=== PATIENT | female | born 1975 | race Caucasian/White ===

== ENCOUNTER 2016-08-16 12:18 | Emergency (ER) | payer MEDICAID ==
--- NOTE | 2016-08-16 14:59 | UC ---
Young Sweet SooYoung, scribed for Anais Good MD on 08/16/16 at 1408 . Skin Complaint HPI - HPI Summary HPI Summary: A 41 y/o F presents to [facility] [place] with c/o sore on inside of lower lip. The sore was first noticed yesterday. Seems to be uncomfortable. No recent illness perse, but is taking amxicillin x 3 days 2/2 a skin problem. No fever / chills. Po intake ok. Pt is disabled, non-verbal and lives in a correction. - History of Current Complaint Chief Complaint: UCSkin Time Seen by Provider: 08/16/16 14:06 Stated Complaint: SOFT TISSUE COMPLAINT Hx Obtained From: Patient, Family/Gm/Svp [employer] Hx Last Menstrual Period: on depo Onset/Duration: Lasting Days - first noticed yesterday, Still Present Timing: Constant Onset Severity: Mild Current Severity: Mild Pain Intensity: 0 Pain Scale Used: 0-10 Numeric - Allergy/Home Medications Allergies/Adverse Reactions: Allergies Allergy/AdvReac Type Severity Reaction Status Date / Time Carbamazepine [From Tegretol] Allergy Unknown Verified 10/12/15 15:03 Reaction Details Phenobarbital Allergy Unknown Verified 10/12/15 15:03 Reaction Details Phenytoin Allergy Unknown Verified 10/12/15 15:03 Reaction Details Primidone Allergy Unknown Verified 10/12/15 15:03 Reaction Details strawberries Allergy Unknown Unknown Uncoded 01/17/13 15:59 Reaction Details Mysolene Allergy Unknown Uncoded 08/16/16 14:10 Reaction Details Review of Systems Constitutional: Other - note - ROS is limited to greenskeeper, as pt is minimally communicative Skin: Other - POS: white sore on inside of lower lip All Other Systems Reviewed And Are Negative: Yes - Comments Additional Review of Systems Comments: Pt non-verbal, cannot complete full ROS. PMH/Surg Hx/FS Hx/Imm Hx Previously Healthy: No Endocrine History Of: Reports: Thyroid Disease - HYPOTHYROID, Hypothyroidism Denies: Diabetes, Hyperthyroidism, Dyslipidemia Cardiovascular History Of: Denies: Cardiac Disorders, Hypertension, Pacemaker/ICD, Myocardial Infarction , Congestive Heart Failure, Atrial Fibrillation, Deep Vein Thrombosis, Bleeding Disorders Respiratory History Of: Denies: COPD, Asthma, Bronchitis, Pneumonia, Pulmonary Embolism GI/ History Of: Denies: Gastroesophageal Reflux, Ulcer, Gastrointestinal Bleed, Gall Bladder Disease, Kidney Stones, Diverticulitis, Renal Disease, Urosepsis Neurological History Of: Reports: Seizures Denies: TIA, CVA, Dementia, Migraine Psychological History Of: Denies: Anxiety, Depression, Bipolar Disorder, Schizophrenia, Post Traumatic Stress Disorder Cancer History Of: Denies: Lung Cancer, Colorectal Cancer, Breast Cancer, Prostate Cancer, Cervical Cancer Other History Of: Negative For: HIV, Hepatitis B, Hepatitis C - Surgical History Surgical History: None - Family History Known Family History: Positive: None - Patient is a non-verbal correction patient. Her MR (-) for fm hx. - Social History Occupation: Disabled Lives: Assisted Living Alcohol Use: None Substance Use Type: None Smoking Status (MU): Never Smoked Tobacco Physical Exam Triage Information Reviewed: Yes Appearance: Well-Nourished Vital Signs: Initial Vital Signs Temp 97.7 F 08/16/16 13:56 Pulse 83 08/16/16 13:56 Resp 18 08/16/16 13:56 Pulse Ox 99 08/16/16 13:56 Vital Signs Reviewed: Yes Eye Exam: Normal ENT Exam: Other - R lower lip with approx 1cm red area with central white area. C/w apthous ulcer. No praveen fluctuance appreciated, nor drainage. Dentition fair, c/w chronic medical issues. Tongue and remainder of oropharynx as visualizable are ok. Exam limited 2/2 compliance. Neck exam: Normal Neck: Positive: Supple Respiratory Exam: Normal Respiratory: Positive: Chest non-tender, Lungs clear, Normal breath sounds, No respiratory distress, No accessory muscle use Cardiovascular Exam: Normal - generally good skin color Cardiovascular: Positive: RRR, Brisk Capillary Refill Abdominal Exam: Normal Abdomen Description: Positive: Nontender Musculoskeletal Exam: Normal Neurological Exam: Other - per caretakers, condition is baseline. No new focal neurological problems noted or reported. Psychological Exam: Normal - see above. baseline per caretakers. Skin: Positive: Other - POS: Inside lower lip Course/Dx - Course Course Of Treatment: No new problems in CCC. Pleasant. PCP swab (herpes s v. 1 ) sent. Ulcer is c/w with viral etiology. Possible superbacterial involvement , penicillin base abx is the treatment, which she already has started x approx 3 days. See avs re f/u. Reviewed need to change out all mouth objects ( toothpaste, toothbrush, cups, etc) in about 2 days. Questions as posed answered to the best of my ability. - Diagnoses Provider Diagnoses: Viral lip ulcer Discharge - Discharge Plan Condition: Stable Disposition: HOME Prescriptions: ValACYclovir (*) [Valtrex 1 GM(*)] 2 gm PO BID #4 tab Patient Education Materials: Oral Herpes Simplex Virus Infections (ED) Referrals: Dimas Gomez MD [Primary Care Provider] - Additional Instructions: Please follow up with your primary care provider as currently scheduled this week. The sore on your lip looks like a viral sore (very common). A herpes virus swab has been sent to the lab. Follow up with your dentist if possible in the next couple weeks. Change out all of your toothbrushes, plasticware, toothpaste in 2 days. Please seek medical attention for worse or new problems. The documentation as recorded by the Young lazo SooYoung accurately reflects the service I personally performed and the decisions made by me, Anais Good MD.
== END 2016-08-16 14:52 | disposition home or self-care (01) ==
LOC: UCEAST 12:18
DX: K13.79 Other lesions of oral mucosa (principal); E03.9 Hypothyroidism, unspecified; R56.9 Unspecified convulsions
CPT/HCPCS: 87529; 99212; G0463

== ENCOUNTER → 2016-12-28 09:22 | Emergency (ER) | payer MEDICAID ==
[2016-12-28 09:28] VITALS: BP 102/77
--- NOTE | 2016-12-28 10:48 | ED ---
Throat Pain/Nasal Congestion - HPI Summary HPI Summary: 41 female presents to ED with staff with complaints of having a loose tooth of central incisor bottom right that occurred and was noticed yesterday. Patient has MR and is non communicative. Information obtained by caregivers at assisted. Staff is concerned for patient's tooth becoming loose and swallowing/ choking on it. Patient is on a puree diet and she has difficulty swallowing. Does have a dentist. Patient sucks on thumb and bite her thumb the other day which is why the believe the tooth is now loose. No complaints of thumb injury. No concern for infection, denies fever/chills. - History of Current Complaint Chief Complaint: EDDentalPain Time Seen by Provider: 12/28/16 09:29 Hx Obtained From: Family/National Sales Representative - assisted steam blocker/ caregivers Onset/Duration: Sudden Onset, Still Present Severity: Mild Cough: None - Allergies/Home Medications Allergies/Adverse Reactions: Allergies Allergy/AdvReac Type Severity Reaction Status Date / Time Carbamazepine [From Tegretol] Allergy Unknown Verified 10/12/15 15:03 Reaction Details Phenobarbital Allergy Unknown Verified 10/12/15 15:03 Reaction Details Phenytoin Allergy Unknown Verified 10/12/15 15:03 Reaction Details Primidone Allergy Unknown Verified 10/12/15 15:03 Reaction Details strawberries Allergy Unknown Unknown Uncoded 01/17/13 15:59 Reaction Details Mysolene Allergy Unknown Uncoded 08/16/16 14:10 Reaction Details PMH/Surg Hx/FS Hx/Imm Hx Endocrine/Hematology History: Reports: Hx Thyroid Disease - HYPOTHYROID Denies: Hx Diabetes Cardiovascular History: Denies: Hx Congestive Heart Failure, Hx Deep Vein Thrombosis, Hx Hypertension , Hx Myocardial Infarction, Hx Pacemaker/ICD Respiratory History: Denies: Hx Asthma, Hx Chronic Obstructive Pulmonary Disease (COPD), Hx Lung Cancer, Hx Pneumonia, Hx Pulmonary Embolism GI History: Denies: Hx Gall Bladder Disease, Hx Gastrointestinal Bleed, Hx Ulcer, Hx Urosepsis History: Denies: Hx Kidney Stones, Hx Renal Disease Musculoskeletal History: Denies: Hx Osteoporosis Neurological History: Reports: Hx Seizures Denies: Hx Dementia, Hx Migraine, Hx Transient Ischemic Attacks (TIA) Psychiatric History: Denies: Hx Anxiety, Hx Depression, Hx Schizophrenia, Hx Bipolar Disorder - Surgical History Surgery Procedure, Year, and Place: n/a - Immunization History Immunizations Up to Date: Yes Infectious Disease History: No Infectious Disease History: Denies: Hx Human Immunodeficiency Virus (HIV), Traveled Outside the [place] in Last 30 Days Comment Only: History Other Infectious Disease - unknown - Family History Known Family History: Positive: None - Patient is a non-verbal assisted patient. Her MR (-) for fm hx. - Social History Alcohol Use: None Substance Use Type: Reports: None Smoking Status (MU): Never Smoked Tobacco Review of Systems Constitutional: Negative Positive: Dental Pain - loose tooth Cardiovascular: Negative Respiratory: Negative Musculoskeletal: Negative Skin: Negative All Other Systems Reviewed And Are Negative: Yes Physical Exam Triage Information Reviewed: Yes Vital Signs On Initial Exam: Initial Vitals Temp Pulse Resp BP Pulse Ox 97.4 F 78 16 102/77 100 12/28/16 09:26 12/28/16 09:26 12/28/16 09:26 12/28/16 09:26 12/28/16 09:26 Vital Signs Reviewed: Yes Appearance: Positive: Well-Appearing, No Pain Distress, Well-Nourished Skin: Positive: Warm, Skin Color Reflects Adequate Perfusion, Dry. Negative: Cold, Soft, Cyanosis @, Pale, Erythema @ Head/Face: Positive: Normal Head/Face Inspection Eyes: Positive: Conjunctiva Clear ENT: Positive: Hearing grossly normal, Pharynx normal, Dental tenderness - feront central incisior, very loose, attempted to cause it to fall out with brushing. Dental: Positive: Gross Decay/Caries @, Dental Fracture @, Bleeding - at loose tooth, central incisor. Negative: Cervical Lymphadenopathy Neck: Positive: Supple, Nontender, No Lymphadenopathy Respiratory/Lung Sounds: Positive: Clear to Auscultation, Breath Sounds Present. Negative: Rales, Rhonchi, Wheezes Cardiovascular: Positive: Normal, RRR, Pulses are Symmetrical in both Upper and Lower Extremities. Negative: Murmur, Rub Musculoskeletal: Positive: Normal, Strength/ROM Intact Neurological: Positive: Sensory/Motor Intact Diagnostics - Vital Signs Vital Signs Temp Pulse Resp BP Pulse Ox 12/28/16 09:50 97.4 F 78 16 102/77 99 12/28/16 09:26 97.4 F 78 16 102/77 100 - Laboratory Lab Statement: Any lab studies that have been ordered have been reviewed, and results considered in the medical decision making process. EENT Course/Dx - Course Course Of Treatment: spoke with Dr Scales about case as well. attempted to cause tooth to fall out with brushing while in ED however was unsuccessful. Difficult to examine due to patient being uncooperative. Reassured staff there is no harm if tooth is swallowed however may fall out on its own throughout day and things to look out for. Follow up with dentist tomorrow. Aware of worsening signs and symptoms. No concern for complications at this time. Appeared to be overkill to sedate and potentially removed loose tooth. - Differential Diagnoses Differential Diagnoses: Dental Caries, Fractured Tooth, Other - loose tooth, dental pain, dental infection - Diagnoses Provider Diagnoses: Loosening of tooth Discharge - Discharge Plan Condition: Stable Disposition: HOME Referrals: Dimas Gomez MD [Primary Care Provider] - Additional Instructions: Please make an appointment to follow up with dentist. Keep good oral hygiene. If tooth hemorrhages, does not stop bleeding or patient develops fever, please seek medical attention.
== END | disposition home or self-care (01) ==
LOC: ED 09:22
DX: K08.89 Other specified disorders of teeth and supporting structures (principal)
CPT/HCPCS: 99282

== ENCOUNTER 2017-01-04 10:16 | Emergency (ER) | payer MEDICAID ==
[2017-01-04 10:40] VITALS: BP 122/80
--- NOTE | 2017-01-04 10:50 | UC ---
Knee Pain HPI - HPI Summary HPI Summary: 41 yo female hurt her right knee on 12/27 during a sz she has walked with a limp since then - History of Current Complaint Chief Complaint: UCLowerExtremity Stated Complaint: LEG INJURY Time Seen by Provider: 01/04/17 10:32 Hx Obtained From: Patient Hx Last Menstrual Period: on depo Onset/Duration: Sudden Onset, Lasting Days Severity Initially: Moderate Severity Currently: Moderate Pain Intensity: 4 Pain Scale Used: Adult Non Verbal Character: Unable to Describe Aggravating Factor(s): Weight Bearing Alleviating Factor(s): Rest Associated Signs And Symptoms: Positive: Swelling Able to Bear Weight: Yes - Allergies/Home Medications Allergies/Adverse Reactions: Allergies Allergy/AdvReac Type Severity Reaction Status Date / Time Carbamazepine [From Tegretol] Allergy Unknown Verified 01/04/17 10:33 Reaction Details Phenobarbital Allergy Unknown Verified 01/04/17 10:33 Reaction Details Phenytoin Allergy Unknown Verified 01/04/17 10:33 Reaction Details Primidone Allergy Unknown Verified 01/04/17 10:33 Reaction Details strawberries Allergy Unknown Unknown Uncoded 01/04/17 10:33 Reaction Details Mysolene Allergy Unknown Uncoded 01/04/17 10:33 Reaction Details Home Medications: Home Medications Citalopram Hydrobromide [Celexa] 20 mg PO DAILY 01/04/17 [History Confirmed 03/12] PMH/Surg Hx/FS Hx/Imm Hx Previously Healthy: Yes Neurological History: Seizures, Other Other Neurological History: MR Other History Of: Negative For: HIV, Hepatitis B, Hepatitis C - Surgical History Surgical History: None Surgery Procedure, Year, and Place: n/a - Family History Known Family History: Positive: None - Patient is a non-verbal longterm patient. Her MR (-) for fm hx. - Social History Alcohol Use: None Substance Use Type: None Smoking Status (MU): Never Smoked Tobacco - Immunization History Most Recent Influenza Vaccination: 2015/2016 Review of Systems Constitutional: Negative Skin: Negative Eyes: Negative ENT: Negative Respiratory: Negative Cardiovascular: Negative Gastrointestinal: Negative Genitourinary: Negative Motor: Negative Neurovascular: Negative Musculoskeletal: Arthralgia Neurological: Negative Psychological: Negative Is Patient Immunocompromised?: No All Other Systems Reviewed And Are Negative: Yes Physical Exam Triage Information Reviewed: Yes Appearance: Well-Appearing, No Pain Distress, Well-Nourished Vital Signs: Initial Vital Signs Temp 97.7 F 01/04/17 10:24 Pulse 79 01/04/17 10:24 Resp 18 01/04/17 10:24 BP 122/80 01/04/17 10:24 Vital Signs Reviewed: Yes Eyes: Positive: Conjunctiva Clear ENT: Negative: Nasal congestion, Nasal drainage, Trismus, Muffled/hoarse voice Neck: Positive: Supple, Nontender Respiratory: Positive: Lungs clear, Normal breath sounds, No respiratory distress, No accessory muscle use Cardiovascular: Positive: RRR Musculoskeletal: Positive: Edema @ - over patella (R) unable to do complete exam /pt combative Neurological: Positive: Alert Skin Exam: Normal Knee Pain Course/Dx - Course Course Of Treatment: XR was unable to do XR/Camila was ill tempered there. may need premedication and out pt order - Differential Dx/Diagnosis Provider Diagnoses: right knee pain of uncertain cause Discharge - Discharge Plan Condition: Stable Disposition: HOME Patient Education Materials: Knee Pain (ED) Referrals: Dimas Gomez MD [Primary Care Provider] - 4 Days Additional Instructions: will probably need premedication to have XR done perhaps it could be ordered as as out pt
== END 2017-01-04 11:46 | disposition home or self-care (01) ==
LOC: UCEAST 10:16
DX: M25.561 Pain in right knee (principal)
CPT/HCPCS: 99211; G0463

== ENCOUNTER → 2017-01-17 13:55 | Emergency (ER) | payer MEDICAID ==
[2017-01-17 15:12] LABS: Hematocrit 38 % (35-47); Hemoglobin 13.2 g/dl (12.0-16.0); Mean Corpuscular HGB Conc 35 g/dl (31-36); Mean Corpuscular Hemoglobin 36 pg (27-31); Mean Corpuscular Volume 103 fL (80-97); Mean Platelet Volume 10 um3 (7.4-10.4); Red Blood Count 3.66 10^6/ul (4.0-5.4); Red Cell Distribution Width 13 % (10.5-15); White Blood Count 7.6 10^3/ul (3.5-10.8)
[2017-01-17 15:30] LABS: Albumin 3.5 g/dL (3.2-5.2); BUN/Creatinine Ratio 28.8 (8-20); C Reactive Protein 1.78 mg/L (< 5.00); EGFR African American 112.4 (>60); EGFR Non-African American 87.4 (>60); Globulin 3.5 g/dL (2-4); Potassium 4.2 mmol/L (3.5-5.0); Total Bilirubin 0.3 mg/dL (0.2-1.0)
[2017-01-17 16:07] LABS: Erythrocyte Sed Rate 27 mm/Hr (0-14)
--- NOTE | 2017-01-17 16:37 | RAD ---
Indication: Right femur pain. 2 views of the right femur demonstrates no definite fracture. The study is somewhat limited due to body habitus. IMPRESSION: No definite fracture of the right femur is noted.
--- NOTE | 2017-01-17 16:41 | RAD ---
Indication: Fall, knee pain. 4 views of the right knee are reviewed. 4 views of left knee are reviewed. The right knee demonstrates no fracture. The There is suggestion of a loose body in the right knee joint. The left knee demonstrates no fracture or effusion. No other bone or joint abnormalities identified. IMPRESSION: No joint effusion is noted. There is suggestion of loose body in the right knee joint.
--- NOTE | 2017-01-17 16:45 | RAD ---
Indication: Right ankle pain. 3 views of the right ankle and 3 views of left ankle are reviewed. The right ankle demonstrates no fracture. No joint effusion is noted. The left ankle demonstrates no fracture. No joint effusion is noted. IMPRESSION: Unremarkable bilateral ankles.
[2017-01-17 17:08] VITALS: BP 111/78
--- NOTE | 2017-01-17 17:36 | ED ---
Yaneth Sweet Alfonso, scribed for Dimas Ghotra MD on 01/17/17 at 1454 . Complex/Multi-Sys Presentation - HPI Summary HPI Summary: LEVEL 5 CAVEAT DUE TO NONVERBAL STATUS. This patient is a 41 year old F presenting to [facility] accompanied by two female caregivers s/p two falls 10 days ago and earlier today. Symptoms aggravated by movement. Symptoms alleviated by nothing. Caregivers report unsteady gait, weakness, hip pain, and knee pain. She is able to stand with assistance. The caregivers premeditated the patient with valium. PMHx includes cerebral palsy. - History Of Current Complaint Chief Complaint: EDWeakness Time Seen by Provider: 01/17/17 14:30 Hx Obtained From: Family/Certified Pharmacist Assistant Onset/Duration: Sudden Onset, Lasting Days - 10, Worse Since - today Timing: Constant Aggravating Factor(s): movement Alleviating Factor(s): nothing Associated Signs And Symptoms: Positive: Other - Caregivers report unsteady gait , weakness, hip pain, and knee pain - Allergies/Home Medications Allergies/Adverse Reactions: Allergies Allergy/AdvReac Type Severity Reaction Status Date / Time Carbamazepine [From Tegretol] Allergy Unknown Verified 01/17/17 14:19 Reaction Details Phenobarbital Allergy Unknown Verified 01/17/17 14:19 Reaction Details Phenytoin Allergy Unknown Verified 01/17/17 14:19 Reaction Details Primidone Allergy Unknown Verified 01/17/17 14:19 Reaction Details strawberries Allergy Unknown Unknown Uncoded 01/17/17 14:19 Reaction Details Mysolene Allergy Unknown Uncoded 01/17/17 14:19 Reaction Details PMH/Surg Hx/FS Hx/Imm Hx Endocrine/Hematology History: Reports: Hx Thyroid Disease - HYPOTHYROID Denies: Hx Diabetes Cardiovascular History: Denies: Hx Congestive Heart Failure, Hx Deep Vein Thrombosis, Hx Hypertension , Hx Myocardial Infarction, Hx Pacemaker/ICD Respiratory History: Denies: Hx Asthma, Hx Chronic Obstructive Pulmonary Disease (COPD), Hx Lung Cancer, Hx Pneumonia, Hx Pulmonary Embolism GI History: Denies: Hx Gall Bladder Disease, Hx Gastrointestinal Bleed, Hx Ulcer, Hx Urosepsis History: Denies: Hx Kidney Stones, Hx Renal Disease Musculoskeletal History: Denies: Hx Osteoporosis Neurological History: Reports: Hx Seizures Denies: Hx Dementia, Hx Migraine, Hx Transient Ischemic Attacks (TIA) Psychiatric History: Reports: Other Psychiatric Issues/Disorders - cerebral palsy Denies: Hx Anxiety, Hx Depression, Hx Schizophrenia, Hx Bipolar Disorder - Surgical History Surgery Procedure, Year, and Place: n/a Infectious Disease History: No Infectious Disease History: Denies: Hx Clostridium Difficile, Hx Hepatitis, Hx Human Immunodeficiency Virus (HIV), Hx of Known/Suspected MRSA, Hx Shingles, Hx Tuberculosis, Hx Known/ Suspected VRE, Hx Known/Suspected VRSA, History Other Infectious Disease - unknown, Traveled Outside the [place] in Last 30 Days - Family History Known Family History: Positive: None - Patient is a non-verbal [facility] patient. Her MR (-) for fm hx. - Social History Alcohol Use: None Substance Use Type: Reports: None Smoking Status (MU): Never Smoked Tobacco Review of Systems - ROS Summary Review of Systems Summary: LEVEL 5 CAVEAT DUE TO NONVERBAL STATUS. Negative: Fever Positive: Other - falls, unsteady gait, hip pain, and knee pain Positive: Weakness All Other Systems Reviewed And Are Negative: Yes Physical Exam - Summary Physical Exam Summary: VITAL SIGNS: Reviewed. GENERAL: Patient is a well-developed and nourished female who is lying comfortable in the stretcher. Patient is not in any acute respiratory distress. HEAD AND FACE: No signs of trauma. No ecchymosis, hematomas or skull depressions. No sinus tenderness. EYES: PERRLA, EOMI x 2, No injected conjunctiva, no nystagmus. EARS: Hearing grossly intact. Ear canals and tympanic membranes are within normal limits. MOUTH: Oropharynx within normal limits. NECK: Supple, trachea is midline, no adenopathy, no JVD, no carotid bruit, no c- spine tenderness, neck with full ROM. CHEST: Symmetric, no tenderness at palpation LUNGS: Clear to auscultation bilaterally. No wheezing or crackles. CVS: Regular rate and rhythm, S1 and S2 present, no murmurs or gallops appreciated. ABDOMEN: Soft, non-tender. No signs of distention. No rebound no guarding, and no masses palpated. Bowel sounds are normal. EXTREMITIES: Left knee FROM, no tenderness, and no deformities. Drop foot in the left. Right knee stiff, swelling. No erythema or deformities. NEURO: Alert. No acute neurological deficits. Speech is normal and follows commands. SKIN: Dry and warm Triage Information Reviewed: Yes Vital Signs On Initial Exam: Initial Vitals Temp Pulse Resp BP Pulse Ox 97.0 F 60 18 92/50 100 01/17/17 14:12 01/17/17 14:12 01/17/17 14:12 01/17/17 14:12 01/17/17 14:12 Vital Signs Reviewed: Yes Completion Of Physical Exam Limited Due To: Level 5 Diagnostics - Vital Signs Vital Signs Temp Pulse Resp BP Pulse Ox 01/17/17 14:12 97.0 F 60 18 92/50 100 - Laboratory Lab Results: Lab Results 01/17/17 01/17/17 Range/Units 15:00 15:00 WBC 7.6 (3.5-10.8) 10^3/ul RBC 3.66 L (4.0-5.4) 10^6/ul Hgb 13.2 (12.0-16.0) g/dl Hct 38 (35-47) % MCV 103 H (80-97) fL MCH 36 H (27-31) pg MCHC 35 (31-36) g/dl RDW 13 (10.5-15) % Plt Count 132 L (150-450) 10^3/ul MPV 10 (7.4-10.4) um3 Neut % (Auto) 67.1 (38-83) % Lymph % (Auto) 24.8 L (25-47) % Gillespie % (Auto) 7.2 (1-9) % Eos % (Auto) 0.1 (0-6) % Baso % (Auto) 0.8 (0-2) % Absolute Neuts (auto) 5.1 (1.5-7.7) 10^3/ul Absolute Lymphs (auto) 1.9 (1.0-4.8) 10^3/ul Absolute Monos (auto) 0.5 (0-0.8) 10^3/ul Absolute Eos (auto) 0 (0-0.6) 10^3/ul Absolute Basos (auto) 0.1 (0-0.2) 10^3/ul Absolute Nucleated RBC 0 10^3/ul Nucleated RBC % 0 ESR 27 H (0-14) mm/Hr Sodium 136 (133-145) mmol/L Potassium 4.2 (3.5-5.0) mmol/L Chloride 104 (101-111) mmol/L Carbon Dioxide 28 (22-32) mmol/L Anion Gap 4 (2-11) mmol/L BUN 21 (6-24) mg/dL Creatinine 0.73 (0.51-0.95) mg/dL Est GFR ( Amer) 112.4 (>60) Est GFR (Non-Af Amer) 87.4 (>60) BUN/Creatinine Ratio 28.8 H (8-20) Glucose 79 (70-100) mg/dL Calcium 9.0 (8.6-10.3) mg/dL Total Bilirubin 0.30 (0.2-1.0) mg/dL AST 14 (13-39) U/L ALT 10 (7-52) U/L Alkaline Phosphatase 39 (34-104) U/L C-Reactive Protein 1.78 (< 5.00) mg/L Total Protein 7.0 (6.4-8.9) g/dL Albumin 3.5 (3.2-5.2) g/dL Globulin 3.5 (2-4) g/dL Albumin/Globulin Ratio 1.0 (1-3) Result Diagrams: 01/17/17 15:00 01/17/17 15:00 Lab Statement: Any lab studies that have been ordered have been reviewed, and results considered in the medical decision making process. - Radiology Knee X-Ray Radiology Interpretation Completed By: Radiologist - No joint effusion is noted. There is suggestion of loose body in the right knee joint. ED physician has reviewed this radiology report and agrees. Ankle X-ray Radiology Interpretation Completed By: Radiologist - Unremarkable bilateral ankles. ED physician has reviewed this radiology report and agrees. Femur X-ray Radiology Interpretation Completed By: Radiologist - No definite fracture of the right femur is noted. ED physician has reviewed this radiology report and agrees. Complex Multi-Symp Course/Dx Assessment/Plan: LEVEL 5 CAVEAT DUE TO NONVERBAL STATUS. This patient is a 41 year old F presenting to [facility] accompanied by two female caregivers s/p two falls 10 days ago and earlier today. Symptoms aggravated by movement. Symptoms alleviated by nothing. Caregivers report unsteady gait, weakness, hip pain, and knee pain. She is able to stand with assistance. The caregivers premeditated the patient with valium. PMHx includes cerebral palsy. Knee X-Ray reveals No joint effusion is noted. There is suggestion of loose body in the right knee joint. ED physician has reviewed this radiology report and agrees. Ankle X-Ray reveals Unremarkable bilateral ankles. ED physician has reviewed this radiology report and agrees. Femur X-Ray reveals No definite fracture of the right femur is noted. ED physician has reviewed this radiology report and agrees. Since the patient has a loose body in the knee, this may be the cause of the pain. Therefore, I recommended orthopedic and PCP follow up. The caregiver was advised to administer Tylenol QID PRN for the pain. The patient is hemodynamically stable and alert. - Diagnoses Provider Diagnoses: Knee pain Discharge - Discharge Plan Condition: Stable Disposition: HOME Patient Education Materials: Knee Pain (ED) Referrals: Luz Maria Maier MD [Medical Doctor] - 3 Days Dimas Gomez MD [Primary Care Provider] - 1 Week Additional Instructions: RETURN TO THE EMERGENCY DEPARTMENT FOR CHANGING OR WORSENING SYMPTOMS. The documentation as recorded by the Yaneth lazo Alfonso accurately reflects the service I personally performed and the decisions made by me, Dimas Ghotra MD.
== END | disposition home or self-care (01) ==
LOC: ED 13:55
DX: M25.569 Pain in unspecified knee (principal); E03.9 Hypothyroidism, unspecified; R53.1 Weakness; M25.559 Pain in unspecified hip; G80.9 Cerebral palsy, unspecified; Z88.8 Allergy status to other drugs, medicaments and biological substances
CPT/HCPCS: 36415; 80053; 85025; 85652; 86140; 99285

== ENCOUNTER 2017-09-25 08:42 | Emergency (ER) | payer MEDICAID ==
[2017-09-25 08:53] VITALS: BP 104/69
--- NOTE | 2017-09-25 09:41 | RAD ---
Indication: Bruising distal end of LEFT fifth finger without known injury. Comparison: May 23, 2010 Technique: AP, lateral, and oblique views LEFT fifth finger. REPORT AND IMPRESSION: Fracture at the base of the fifth distal phalanx with suggestion of potential intra-articular extension without significant articular surface discontinuity or incongruity. Up to 2 mm volar displacement of the distal fracture moiety. The articular base maintains normal alignment at the DIP joint. Surrounding soft tissue swelling
--- NOTE | 2017-09-25 09:52 | UC ---
Upper Extremity HPI - HPI Summary HPI Summary: Patient is a 42-year-old female presenting from [facility] with 8 at bedside. 8 states during her day treatment program this morning they had noticed some bruising to the left little finger. Patient is nonverbal. Patient does not appear to be in any distress oriented pain at this time. They have not given her anything for relief or put ice on the area. They are unsure of how she injured the little finger. - History of Current Complaint Chief Complaint: UCUpperExtremity Stated Complaint: FINGER INJURY Time Seen by Provider: 09/25/17 08:54 Hx Obtained From: Patient Hx Last Menstrual Period: on depo ?: No Onset/Duration: Sudden Onset Pain Intensity: 0 Pain Scale Used: Adult Non Verbal Related History: Dominant Hand Right - Allergies/Home Medications Allergies/Adverse Reactions: Allergies Allergy/AdvReac Type Severity Reaction Status Date / Time MS Carbamazepine Allergy Unknown Verified 01/17/17 14:19 [From Tegretol] Reaction Details MS Phenobarbital Allergy Unknown Verified 01/17/17 14:19 [Phenobarbital] Reaction Details MS Phenytoin [Phenytoin] Allergy Unknown Verified 01/17/17 14:19 Reaction Details MS Primidone [Primidone] Allergy Unknown Verified 01/17/17 14:19 Reaction Details strawberries Allergy Unknown Unknown Uncoded 01/17/17 14:19 Reaction Details Mysolene Allergy Unknown Uncoded 01/17/17 14:19 Reaction Details PMH/Surg Hx/FS Hx/Imm Hx Previously Healthy: Yes Other History Of: Negative For: HIV, Hepatitis B, Hepatitis C - Surgical History Surgical History: None Surgery Procedure, Year, and Place: n/a - Family History Known Family History: Positive: None - Patient is a non-verbal [facility] patient. Her MR (-) for fm hx. - Social History Occupation: Employed Part-time Lives: [facility] Alcohol Use: None Substance Use Type: None Smoking Status (MU): Never Smoked Tobacco - Immunization History Most Recent Influenza Vaccination: 2015/2016 Review of Systems Constitutional: Negative - Patient is non-verbal- ROS is limited Skin: Bruising Respiratory: Negative Cardiovascular: Negative Neurovascular: Negative Musculoskeletal: Negative Is Patient Immunocompromised?: No All Other Systems Reviewed And Are Negative: Yes Physical Exam Triage Information Reviewed: Yes Appearance: Well-Appearing, No Pain Distress, Well-Nourished Vital Signs: Initial Vital Signs Temp 97.9 F 06/02/18 08:50 Pulse 81 09/25/17 08:50 Resp 18 09/25/17 08:50 BP 104/69 09/25/17 08:50 Pulse Ox 100 09/25/17 08:50 Eye Exam: Normal Eyes: Positive: Conjunctiva Clear Neck: Positive: Supple Respiratory Exam: Normal Respiratory: Positive: Chest non-tender Cardiovascular Exam: Normal Musculoskeletal: Positive: No Edema Psychological: Positive: Decreased Age Appropriate Behavior Skin: Positive: Other - ecchymosis Upper Extremity Course/Dx - Course Course Of Treatment: Patient is evaluated for left little finger injury. The nail bed remains intact but is blackened. The distal tip of the finger has ecchymosis extending down into the base of the MCP. X-ray obtained.IMPRESSION: Fracture at the base of the fifth distal phalanx with suggestion of potential. intra-articular extension without significant articular surface discontinuity or. incongruity. Up to 2 mm volar displacement of the distal fracture moiety. The articular. base maintains normal alignment at the DIP joint. Surrounding soft tissue swelling. Stack splint applied. Patient will follow up with Dr. Lynch. - Differential Dx/Diagnosis Differential Diagnosis/HQI/PQRI: Fracture (Open), Fracture (Closed) Provider Diagnoses: Fracture left little finger Discharge - Sign-Out/Discharge Documenting (check all that apply): Discharge/Admit/Transfer - Discharge Plan Condition: Stable Disposition: HOME Patient Education Materials: Finger Fracture (ED) Referrals: Dimas Gomez MD [Primary Care Provider] - Marce Lynch MD [Medical Doctor] - Additional Instructions: Please follow up with Dr Lynch Keep the splint applied until that time - Billing Disposition and Condition Condition: STABLE Disposition: HOME
== END 2017-09-25 09:45 | disposition home or self-care (01) ==
LOC: UCEAST 08:42
DX: S62.667A Nondisplaced fracture of distal phalanx of left little finger, initial encounter for closed fracture (principal); X58.XXXA Exposure to other specified factors, initial encounter; Y93.89 Activity, other specified; Y92.10 Unspecified residential institution as the place of occurrence of the external cause; Z88.8 Allergy status to other drugs, medicaments and biological substances
CPT/HCPCS: 73140; 99212; G0463

== ENCOUNTER 2018-01-07 16:04 | Emergency (ER) | payer MEDICAID ==
--- OUTSIDE RECORDS SUMMARY | 2018-01-07 16:10 | XMS REPORT | Continuity of Care Document ---
:1975 External Reference #:[id number] Author Name Angelia Sanabria O.D. Address [address] [place] [address] Care Team Providers Name Role Phone Dimas Gomez M.D. Primary Care Physician Unavailable Payers Type Date Identification Numbers Payment Provider Subscriber Policy Number: [id number] Medicaid Camila Arnold PayID: [id number] [address] [place] [address] Advance Directives Description No Information Available Problems Date Description Provider Status Onset: Thyroid dysfunction Active Onset: Mental retardation Active Onset: Cerebral palsy Active Onset: Seizure Active Onset: Hemiparesis Active Onset: 01/24/2016 Alternating exotropia Angelia Sanabria O.D. Active Family History Date Family Member(s) Problem(s) Comments General Unknown Father Unknown Mother Unknown Social History Type Date Description Comments Sex Unknown Marital Status Single Occupation None Work Status Unemployed ETOH Use Denies alcohol use Tobacco Use Start: Unknown Patient has never smoked Recreational Drug Use Denies Drug Use Smoking Status Reviewed: 12/29/17 Patient has never smoked Allergies, Adverse Reactions, Alerts Date Description Reaction Status Severity Comments 12/31/2015 Phenytoin Active 12/31/2015 Phenobarbital Active 12/31/2015 Primidone Active 12/31/2015 Tegretol Active 01/24/2016 Mysoline Active Medications Medication Date Status Form Strength Qnty SIG Indications Ordering Provider Depakote Active CSDR 125mg Unknown Sprinkles 000 Senna Active Capsules 8.6mg Unknown 000 Calcium + D Active Chewtabs 500-1000-40 Unknown 000 mg-Unt-mcg Celexa Active Tablets 10mg Unknown 000 Levothyroxine Active Tablets 75mcg Unknown Sodium 000 Fiber-Lax Active Tablets 625mg Unknown 000 Depo-Provera Active Suspension 150mg/ml q3 mos Unknown 000 Immunizations Description No Information Available Vital Signs Description No Information Available Results Description No Information Available Procedures Date Code Description Status 01/24/2016 37810 Est Patient Comprehensive Exam Completed 12/28/2013 35313 Est Patient Comprehensive Exam Completed 01/05/2012 90852 Est Patient Comprehensive Exam Completed 01/08/2010 70286 Est Patient Comprehensive Exam Completed 08/03/2007 33827 Determination Of Refractive State Completed 08/03/2007 32531 Est Patient Comprehensive Exam Completed 07/02/2005 82571 Est Patient Intermediate Exam Completed Encounters Description No Information Available Plan of Treatment 12/29/2017 - Angelai Sanabria O.D.H50.15 Alternating exotropiaFollow up:2 Year Follow Up
--- NOTE | 2018-01-07 16:35 | UC ---
Minor Trauma HPI - HPI Summary HPI Summary: 42 yo female presents with right rib pain s/p fall. Pt is nonverbal and lives [facility]. [employer] Extension Specialist with her today says that pt had a fall yesterday in the bathroom and hit her right side against the toilet. Pt did not feel like working or attending programs yesterday. Today they noticed some bruising to the area. University Extension Specialist denies pt having a cough or SOB. Does not seem bothered by the pain/discomfort. - History of Current Complaint Chief Complaint: UCGeneralIllness Stated Complaint: R SIDE PAIN Time Seen by Provider: 01/07/18 16:34 Hx Obtained From: Patient Hx Last Menstrual Period: depo Onset/Duration: Sudden Onset Severity Initially: Moderate Severity Currently: Moderate Pain Intensity: 5 Pain Scale Used: 0-10 Numeric - Allergies/Home Medications Allergies/Adverse Reactions: Allergies Allergy/AdvReac Type Severity Reaction Status Date / Time carbamazepine Allergy Unknown Verified 01/07/18 16:35 Reaction Details phenobarbital Allergy Unknown Verified 01/07/18 16:35 Reaction Details phenytoin Allergy Unknown Verified 01/07/18 16:35 Reaction Details primidone Allergy Unknown Verified 01/07/18 16:35 Reaction Details strawberries Allergy Unknown Unknown Uncoded 01/17/17 14:19 Reaction Details Mysolene Allergy Unknown Uncoded 01/17/17 14:19 Reaction Details PMH/Surg Hx/FS Hx/Imm Hx - Additional Past Medical History Additional PMH: Mentally challenged Endocrine History: Hypothyroidism Neurological History: Seizures Psychological History: Anxiety Other History Of: Negative For: HIV, Hepatitis B, Hepatitis C - Surgical History Surgical History: None Surgery Procedure, Year, and Place: n/a - Family History Known Family History: Positive: None - Patient is a non-verbal nursing home patient. Her MR (-) for fm hx. - Social History Occupation: Disabled Lives: [facility]isted Living Alcohol Use: None Substance Use Type: None Smoking Status (MU): Never Smoked Tobacco - Immunization History Most Recent Influenza Vaccination: 2015/2016 Review of Systems Constitutional: Negative Skin: Bruising - Right ribs Respiratory: Negative Cardiovascular: Negative Gastrointestinal: Negative Neurovascular: Negative Musculoskeletal: Negative Neurological: Negative Psychological: Negative All Other Systems Reviewed And Are Negative: Yes Physical Exam - Summary Physical Exam Summary: GENERAL: NAD. WDWN. No pain distress. SKIN: Mild ecchymosis right rib approx 10th rib. CHEST: CTAB. No r/r/w. No accessory muscle use. Breathing comfortably and in no distress. CV: RRR. Without m/r/g. Pulses intact. Cap refill <2seconds ABDOMEN: Soft. NTTP. No distention or guarding. No CVA tenderness. Bowel sounds present NEURO: Alert. PSYCH: Age appropriate behavior. Triage Information Reviewed: Yes Vital Signs: Initial Vital Signs Temp 98.7 F 01/07/18 16:21 Pulse 65 01/07/18 16:21 Resp 16 01/07/18 16:21 Pulse Ox 100 01/07/18 16:21 Vital Signs Reviewed: Yes Minor Trauma Course/Dx - Course Course Of Treatment: XR: IMPRESSION: Question of a nondisplaced fracture of the right 10th rib anterolaterally without definite pneumothorax. Suspect that this is a fracture as this is the exact site of pt's bruising. Advised to rest and apply ice to the area. Tylenol for pain. - Differential Dx/Diagnosis Provider Diagnoses: nondisplaced fracture of the right 10th rib Discharge - Sign-Out/Discharge Documenting (check all that apply): Patient Departure All imaging exams completed and their final reports reviewed: Yes - Discharge Plan Condition: Stable Disposition: HOME Patient Education Materials: Rib Fracture (ED) Referrals: Dimas Gomez MD [Primary Care Provider] - Additional Instructions: If you develop a fever, shortness of breath, chest pain, new or worsening symptoms - please call your PCP or go to the ED. - Billing Disposition and Condition Condition: STABLE Disposition: Home
--- NOTE | 2018-01-07 17:36 | RAD ---
Indication: Right rib pain after fall 3 views of the right ribs are reviewed. There may be a nondisplaced fracture of the right 10th rib laterally. No other fractures are noted. The left ribs are grossly unremarkable. IMPRESSION: Question of a nondisplaced fracture of the right 10th rib anterolaterally without definite pneumothorax.
== END 2018-01-07 17:35 | disposition home or self-care (01) ==
LOC: UCEAST 16:04
DX: S22.31XA Fracture of one rib, right side, initial encounter for closed fracture (principal); W18.30XA Fall on same level, unspecified, initial encounter; Y92.091 Bathroom in other non-institutional residence as the place of occurrence of the external cause; Z88.8 Allergy status to other drugs, medicaments and biological substances
CPT/HCPCS: 99211; G0463

== ENCOUNTER 2018-01-30 19:28 | Emergency (ER) | payer MEDICAID ==
[2018-01-30 19:40] VITALS: BP 107/74
--- NOTE | 2018-01-30 20:22 | UC ---
Upper Extremity HPI - HPI Summary HPI Summary: 42-year-old female with developmental delay presents with caregiver who states that patient cried out while they were changing her clothes and caregiver noted bruising and swelling to the pinky finger of her right hand. Caregiver states that patient frequently his hand against henson. Had a similar episode about one year ago causing a fracture to the pinky finger of the left hand. 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 - History of Current Complaint Chief Complaint: UCUpperExtremity Stated Complaint: HAND INJURY Time Seen by Provider: 01/30/18 19:48 Hx Obtained From: Family/Flute Polisher Hx Last Menstrual Period: ON DEPOPROVERA Severity Currently: Mild Pain Intensity: 4 Character: Unable to Describe Aggravating Factor(s): Movement Associated Signs And Symptoms: Positive: Swelling, Bruising - Allergies/Home Medications Allergies/Adverse Reactions: Allergies Allergy/AdvReac Type Severity Reaction Status Date / Time carbamazepine Allergy Unknown Verified 01/30/18 19:41 Reaction Details phenobarbital Allergy Unknown Verified 01/30/18 19:41 Reaction Details phenytoin Allergy Unknown Verified 01/30/18 19:41 Reaction Details primidone Allergy Unknown Verified 01/30/18 19:41 Reaction Details strawberries Allergy Unknown Unknown Uncoded 01/30/18 19:41 Reaction Details Mysolene Allergy Unknown Uncoded 01/30/18 19:41 Reaction Details Home Medications: Home Medications Diazepam TAB(*) [Valium TAB(*)] 2 tab PO ONCE PRN 01/30/18 [History Confirmed ] Terbinafine HCl [Lamisil At [place]] 1 % EX BEDTIME 01/30/18 [History Confirmed ] PMH/Surg Hx/FS Hx/Imm Hx Endocrine History: Thyroid Disease Neurological History: Seizures Other Psychological History: developmental delay Other History Of: Negative For: HIV, Hepatitis B, Hepatitis C - Surgical History Surgical History: None Surgery Procedure, Year, and Place: n/a - Family History Known Family History: Positive: None - Patient is a non-verbal nursing home patient. Her MR (-) for fm hx. - Social History Occupation: Disabled Lives: Long-Term Alcohol Use: None Substance Use Type: None Smoking Status (MU): Never Smoked Tobacco - Immunization History Most Recent Influenza Vaccination: 2015/2016 Review of Systems Constitutional: Negative Skin: Bruising Musculoskeletal: Other: - See HPI Is Patient Immunocompromised?: No All Other Systems Reviewed And Are Negative: Yes Physical Exam Triage Information Reviewed: Yes Appearance: No Pain Distress, Well-Nourished Vital Signs: Initial Vital Signs Temp 97.3 F 01/30/18 19:32 Pulse 59 01/30/18 19:32 Resp 18 01/30/18 19:32 BP 107/74 01/30/18 19:32 Pulse Ox 97 01/30/18 19:32 Vital Signs Reviewed: Yes Respiratory: Positive: No respiratory distress Cardiovascular: Positive: Pulses Normal, Brisk Capillary Refill Musculoskeletal: Positive: Other: - Right hand contraction. Bruising noted to pinky finger right hand. Tenderness with touch or movement. Neurological: Positive: Alert Skin Exam: Other - See above. Skin: Positive: Other Diagnostics - Radiology No standard instances Xray Interpretation: Positive (See Comments) Radiology Interpretation Completed By: ED Physician - There is a possible nondisplaced fracture of the proximal middle phalange on that extends into the intraarticular space seen only on view #3. Upper Extremity Course/Dx - Course Course Of Treatment: 42 year old female with developmental delay presents with bruising, swelling, and pain to right pinky finger. Exam limited because patient is nonverbal but there was significant bruising and swelling of the finger and patient would withdraw if palpated or passive ROM attempted. X-ray showed a possible non-displaced fracture of the proximal middle phalange of right pinky finger that extends into the articular space. This was seen on only 1 view. Do to the patients contracture of th right hand, she was splinted by emily taping to the neighboring finger. Recommend ice 3-4 times a day and OTC analgesics. Given referral for follow up with orthopedic surgery unless radiologist feels there is no fracture then may follow up with PCP. Caregivers verbalize understanding and agree with POC. - Differential Dx/Diagnosis Provider Diagnoses: nondisplaced fracture of proximal middle phalange right pinky finger Discharge - Sign-Out/Discharge Documenting (check all that apply): Patient Departure All imaging exams completed and their final reports reviewed: No - Discharge Plan Condition: Stable Disposition: HOME Patient Education Materials: Finger Fracture (ED) Referrals: Dimas Gomez MD [Primary Care Provider] - Odette Bonilla MD [Medical Doctor] - 5 Days (Call for appointment) Additional Instructions: There was a suspected fracture on 1 image of the Xray performed in the clinic devin. The X-ray will be reviewed by the radiologist tomorrow and we will contact you if there is any change in treatment. Keep the ring finger and pinky finger emily taped to provide support. Ice the affected finger for 15-20 minutes 3-4 times a day to help reduce swelling if tolerated. May use acetaminophen (Tylenol) or ibuprofen (Advil, Motrin) according to directions as needed for pain. Follow up with orthopedic surgery in 5 days. Call for appointment. If the radiologist feels that there is no fracture you may simply follow up with your primary care provider. Seek immediate medical attention for pain that is not managed with pain medications, increased swelling, if the finger becomes pale, blue, or cold to the touch. - Billing Disposition and Condition Condition: STABLE Disposition: Home
--- NOTE | 2018-01-31 08:00 | RAD ---
HISTORY: bruising and swelling pinky finger COMPARISONS: None VIEWS: 3 , Frontal, lateral, and oblique views of the right hand. The study is technically limited. FINDINGS: BONE DENSITY: Normal. BONES: There is a nondisplaced fracture along the radial aspect of the base of the middle phalanx of the fifth digit, with articular extension. JOINTS: There is no arthropathy. ALIGNMENT: There is no dislocation. SOFT TISSUES: Unremarkable. OTHER FINDINGS: None. IMPRESSION: LIMITED STUDY. NONDISPLACED FRACTURE OF THE MIDDLE PHALANX OF THE FIFTH DIGIT OF THE RIGHT HAND. R0
--- NOTE | 2018-01-31 09:16 | UC ---
- Progress Note Progress Note: Patient was seen January 30, 2018 here in clinic and had an x-ray of her right fifth finger which was read by the provider here as a possible fracture in the middle phalanx. At that time radiology reading was pending. The radiologist read the x-ray today as a nondisplaced fracture in the fifth finger middle phalanx on the right. I called the patient and informed her caregiver that there was a fracture and that the appropriate follow-up is with orthopedics. The patient's caregiver agreed to make sure the patient saw orthopedics in follow-up. Discharge - Sign-Out/Discharge Documenting (check all that apply): Patient Departure All imaging exams completed and their final reports reviewed: Yes - Discharge Plan Condition: Stable Disposition: HOME Patient Education Materials: Finger Fracture (ED) Referrals: Odette Bonilla MD [Medical Doctor] - 5 Days (Call for appointment) Dimas Gomez MD [Primary Care Provider] - Additional Instructions: There was a suspected fracture on 1 image of the Xray performed in the clinic tonight. The X-ray will be reviewed by the radiologist tomorrow and we will contact you if there is any change in treatment. Keep the ring finger and pinky finger emily taped to provide support. Ice the affected finger for 15-20 minutes 3-4 times a day to help reduce swelling if tolerated. May use acetaminophen (Tylenol) or ibuprofen (Advil, Motrin) according to directions as needed for pain. Follow up with orthopedic surgery in 5 days. Call for appointment. If the radiologist feels that there is no fracture you may simply follow up with your primary care provider. Seek immediate medical attention for pain that is not managed with pain medications, increased swelling, if the finger becomes pale, blue, or cold to the touch. - Billing Disposition and Condition Condition: STABLE Disposition: Home
== END 2018-01-30 21:13 | disposition home or self-care (01) ==
LOC: UCEAST 19:28
DX: S62.642A Nondisplaced fracture of proximal phalanx of right middle finger, initial encounter for closed fracture (principal); R56.9 Unspecified convulsions; Z79.899 Other long term (current) drug therapy; R62.50 Unspecified lack of expected normal physiological development in childhood; Z91.018 Allergy to other foods; Z88.8 Allergy status to other drugs, medicaments and biological substances; X58.XXXA Exposure to other specified factors, initial encounter; Y92.9 Unspecified place or not applicable
CPT/HCPCS: 99212; G0463

== ENCOUNTER 2018-12-07 16:13 | Emergency (ER) | payer MEDICAID ==
--- NOTE | 2018-12-07 17:17 | ED ---
Neurological HPI - HPI Summary HPI Summary: A 43 y/o female brought in by [facility] ambulance presents to [facility] with a chief complaint of a seizure today. The patient has a Hx of seizures, her last seizure was in August. She is usually rigid and shakes, per aide, but this time she was standing and fell back, hit her head and started seizing on the floor for about 2.5 minutes. She was post-ictal for 20 mins and has usually been post- ictal for about 2-5 minutes. She was not incontinent today. She has never fell from a standing position in 10 years. Now she is back to baseline. She has had no infectious symptoms, fevers and has been eating, drinking and ambulating well. - History of Current Complaint Chief Complaint: EDHeadInjury Stated Complaint: SEIZURE PER EMS Time Seen by Provider: 12/07/18 16:43 Hx Obtained From: Patient, Family/Manager Film, EMS Hx Last Menstrual Period: ON DEPOPROVERA Onset/Duration: Sudden Onset, Started hours ago, Resolved Timing: Intermittent Episodes Lasting: - 2.5 minutes, post ictal for about 20 Onset Severity: Mild Current Severity: Mild Seizure Severity: Mild Number of Seizures: 1 Neurological Deficit Location: Generalized Pain Intensity: 0 Pain Scale Used: 0-10 Numeric Character: Other: - dropped to the floor from a standing position, hit the back of her head, started seizing for 2.5 minutes and was post-ictal for 20 minutes Aggravating: Nothing Alleviating: Nothing Associated Signs and Symptoms: Negative: Fever - Allergy/Home Medications Allergies/Adverse Reactions: Allergies Allergy/AdvReac Type Severity Reaction Status Date / Time carbamazepine Allergy Unknown Verified 01/30/18 19:41 Reaction Details phenobarbital Allergy Unknown Verified 01/30/18 19:41 Reaction Details phenytoin Allergy Unknown Verified 01/30/18 19:41 Reaction Details primidone Allergy Unknown Verified 01/30/18 19:41 Reaction Details strawberries Allergy Unknown Unknown Uncoded 01/30/18 19:41 Reaction Details Mysolene Allergy Unknown Uncoded 01/30/18 19:41 Reaction Details PMH/Surg Hx/FS Hx/Imm Hx Endocrine/Hematology History: Reports: Hx Thyroid Disease - HYPOTHYROID Denies: Hx Diabetes Cardiovascular History: Denies: Hx Congestive Heart Failure, Hx Deep Vein Thrombosis, Hx Hypertension , Hx Myocardial Infarction, Hx Pacemaker/ICD Respiratory History: Denies: Hx Asthma, Hx Chronic Obstructive Pulmonary Disease (COPD), Hx Lung Cancer, Hx Pneumonia, Hx Pulmonary Embolism GI History: Denies: Hx Gall Bladder Disease, Hx Gastrointestinal Bleed, Hx Ulcer, Hx Urosepsis History: Denies: Hx Kidney Stones, Hx Renal Disease Musculoskeletal History: Denies: Hx Osteoporosis Neurological History: Reports: Hx Seizures Denies: Hx Dementia, Hx Migraine, Hx Transient Ischemic Attacks (TIA) Psychiatric History: Reports: Other Psychiatric Issues/Disorders - cerebral palsy Denies: Hx Anxiety, Hx Depression, Hx Schizophrenia, Hx Bipolar Disorder - Surgical History Surgery Procedure, Year, and Place: n/a - Immunization History Immunizations Up to Date: Yes Infectious Disease History: No Infectious Disease History: Denies: Hx Clostridium Difficile, Hx Hepatitis, Hx Human Immunodeficiency Virus (HIV), Hx of Known/Suspected MRSA, Hx Shingles, Hx Tuberculosis, Hx Known/ Suspected VRE, Hx Known/Suspected VRSA, History Other Infectious Disease - unknown, Traveled Outside the [place] in Last 30 Days - Family History Known Family History: Positive: None - Patient is a non-verbal long term patient. Her MR (-) for fm hx. - Social History Alcohol Use: None Substance Use Type: Reports: None Smoking Status (MU): Never Smoked Tobacco Review of Systems Negative: Fever Neurological: Other - positive: seizure, hit the back of her head All Other Systems Reviewed And Are Negative: Yes Physical Exam - Summary Physical Exam Summary: Constitutional: Well-developed, Well-nourished, Alert. (-) Distressed Skin: Warm, Dry HENT: PERRL. Hematoma to the occiput Eyes: Conjunctiva normal Neck: Musculoskeletal ROM normal neck. (-) JVD, (-) Stridor, (-) Nuchal rigidity Cardio: Rhythm regular, rate normal, Heart sounds normal; Intact distal pulses; Radial pulses are 2+ and symmetric. (-) Murmur Pulmonary/Chest wall: Effort normal. (-) Respiratory distress, (-) Wheezes, (-) Rales Abd: Soft, (-) tenderness, (-) Distension, (-) Guarding, (-) Rebound Musculoskeletal: contractures hands, ankles in brace Lymph: (-) Cervical adenopathy Neuro: Alert, nods yes and no. Interactive. Psych: Happy, smiling Triage Information Reviewed: Yes Vital Signs On Initial Exam: Initial Vitals Temp Pulse Resp BP Pulse Ox 98.0 F 79 18 114/86 100 12/07/18 16:15 12/07/18 16:15 12/07/18 16:15 12/07/18 16:15 12/07/18 16:15 Vital Signs Reviewed: Yes - Deeth Coma Scale Best Eye Response: 4 - Spontaneous Best Motor Response: 6 - Obeys Commands Best Verbal Response: 2 - Incomprehensible Words Coma Scale Total: 12 Diagnostics - Vital Signs Vital Signs Temp Pulse Resp BP Pulse Ox 12/07/18 16:40 79 114/74 99 12/07/18 16:28 80 114/86 99 12/07/18 16:15 98.0 F 79 18 114/86 100 - Laboratory Lab Statement: Any lab studies that have been ordered have been reviewed, and results considered in the medical decision making process. - CT Brain CT Interpretation Completed By: Radiologist Summary of CT Findings: Markedly limited exam due to motion artifact as described. No intracranial hemorrhage or gross evidence for acute intracranial process evident. 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 Encephalomalacia. of the LEFT parietal and occipital lobes with ex vacuo dilatation of the LEFT lateral. ventricle. ED physician has reviewed this imaging report. Re-Evaluation - Re-Evaluation First Eval Re-Evaluation Time: 17:37 Change: Unchanged Comment: her valproic acid is supratheraputic so we will hold her dose. Second Eval Re-Evaluation Time: 17:43 Change: Unchanged Comment: Patient moving during CT, attempted x3. Poor quality scan 2/2 movement but no e/o ICH. D/w Dr. Tesfaye (radiology) who states no obvious ICH/trauma. Updated aid at bedside and plan for discharge home. Aid states her valproic acid is always elevated and her neurologist is OK w that. She is at her neurologic baseline. Course/Dx - Course Course Of Treatment: 43-year-old female with a history of seizures untypical, cerebral palsy presents after a seizure and striking her head. Physical exam w well-appearing female at neurologic baseline, small occipital hematoma. Check a head CT, and Depakote level. We'll give her Depakote dose here - Diagnoses Provider Diagnoses: Seizure Discharge - Sign-Out/Discharge Documenting (check all that apply): Patient Departure - DC Patient Received Moderate/Deep Sedation with Procedure: No - Discharge Plan Condition: Stable Disposition: HOME Patient Education Materials: Epilepsy (ED) Referrals: Dimas Gomez MD [Primary Care Provider] - Additional Instructions: You were seen in the emergency department for a seizure. Her head CT did not show any bleeding. Please return to the emergency department if she has continued seizures, headaches, confusion, or if you are concerned If any studies were not completed at the time of discharge you will be called with the relevant results. Please follow up with your primary care doctor in next 2-3 days and return to emergency department for worsening or concerning symptoms. - Billing Disposition and Condition Condition: STABLE Disposition: Home - Attestation Statements Document Initiated by Tom: Yes Documenting Geovanniibe: Hermann Mccain Provider For Whom Tom is Documenting (Include Credential): Tea Shen MD Scribe Attestation: Hermann Sweet, scribed for Tea Shen MD on 12/07/18 at 1814. Scribe Documentation Reviewed: Yes Provider Attestation: The documentation as recorded by the Hermann lazo accurately reflects the service I personally performed and the decisions made by , Tea Shen MD Status of Scribe Document: Viewed
[2018-12-07] MEDS ORDERED: Divalproex Sprinkle CAP* 125 MG PO ONE (17:26)
[2018-12-07] MEDS ORDERED: Haloperidol INJ IV/IM* 5 MG/ML AMP IM ONE (17:42)
--- OUTSIDE RECORDS SUMMARY | 2018-12-07 18:07 | XMS REPORT | Continuity of Care Document ---
:1975 External Reference #:[id number] Author Name Bridget Lovell Care Team Providers Name Role Phone Dimas Gomez III, MD Primary Care Physician Unavailable Payers Date Identification Numbers Payment Provider Subscriber Policy Number: [id number] Medicaid Tj Ramires PayID: [id number] [address] [place] [address] Effective: 2014 Policy Number: [facility] Tj Ramires [id number] Onset: 2014 Group Name: [id number]. [id number], [address] PayID: [id number] [place] [address] Problems Active Problems Provider Date Mental retardation Julienne Cardenas M.D. Onset: 06/26/2009 Epilepsy Julienne Cardenas M.D. Onset: 06/26/2009 Hemiplegia Julienne Cardenas M.D. Onset: 06/26/2009 Infantile cerebral palsy Dimas Gomez M.D. Onset: 06/30/2012 Hypothyroidism Dimas Gomez M.D. Onset: 06/30/2012 Cerebral palsy Dimas Gomez M.D. 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 Mariela Enciso MD Onset: 05/12/2017 Family History Date Family Member(s) Observation Comments General Diabetes General Bipolar Disorder Social History Type Date Description Comments Sex Unknown Lives With Assisted living Occupation Disabled ETOH Use Denies alcohol use Tobacco Use Start: Unknown Patient has never smoked Smoking Status Reviewed: 11/15/18 Patient has never smoked Exercise Type/Frequency Does not exercise Allergies, Adverse Reactions, Alerts Active Allergies Reaction Severity Comments Date Phenytoin unknown 01/07/2009 Phenobarbital unknown 01/07/2009 Primidone unknown 01/07/2009 strawberries unknown 01/07/2009 Tegretol 02/15/2013 Mysoline 02/15/2013 Medications Active Medications SIG Qnty Indications Ordering Date Provider [facility] Food Use To Honey 55units Dimas E. 05/02/2018 Thickener Consistency Orlando Gomez Chlorhexidine Rinse With 5(cc) 473units Dimas E. 04/05/2018 Gluconate After Brushing Teeth Orlando Gomez 0.12% Twice Daily Solution Terbinafine HCL Apply To Soles Of 30units Dimas E. 04/05/2018 1% Feet & Between Toes Orlando Gomez Cream Monthly For 7 Days (Antifungal-Athletes Foot) Loratadine 1 by mouth every day 30tabs Dimas E. 08/18/2017 10mg prn Orlando Gomez Tablets Simply Thick Food Use To Honey 180units Dimas E. 03/23/2017 Thickener Consistency Orlando Gomez Calcium take one tablet by 30tabs Dimas E. 07/18/2015 Carbonate-Vitamin D mouth every day Orlando Gomez (supplement) [id number] Tablets Peridex 0.12% Oral Rinse With 5(cc) 473units Dimas E. 04/29/2015 Rinse So After Brushing Teeth Orlando Gomez Twice Daily Levothyroxine Sodium Take One Tablet By 30tabs Dimas E. 12/21/2014 Mouth Every Day Orlando Gomez 75mcg Tablets (Hypothyrodism) Fiber-Lax take one tablet by 60tabs Dimas E. 12/12/2013 625mg mouth 2 times a day Orlando Gomez Tablets (bowel regularity) Claritin 10MG Tab Take One Tablet By 30units Dimas EDonna 06/02/2013 Mouth Every Day as Orlando Gomez Needed (Allergies) Sudogest Take 2 Tablets By 60tabs Dimas EDonna 01/06/2013 30mg Tablets Mouth Every 4 Hours Orlando Gomez as Needed (Cold Symptoms) Depakote Sprinkles Take 4 Caps By Mouth 360units Dimas E. 08/22/2012 (7Am), 3 Caps AT Orlando Gomez 125mg CSDR (3PM), & 5 Caps AT (8PM) Seizures Mineral Oil Instill 3 Drops Each 30units Dimas E. 07/27/2011 Oil Ear Every Week Orlando Gomez (Break Up Wax) Bacitracin Apply to small cuts 30gm Dimas E. 07/27/2011 500Unit/GM and wounds prn Orlando Gomez Ointment Antibacterial Acetaminophen 2 tablets po q4hrs 120tabs Dimas E. 07/27/2011 325mg prn for pain or Orlando Gomez Tablets fever above 100 x5 days Milk Of Magnesia 30mL po if no BM in 355ml Dimas EDonna 07/27/2011 3 days prn Orlando Gomez 400mg/5ML Suspension Robitussin DM 10mL po q6h prn 1bottle Dimas EDonna 07/27/2011 Cough w/o fever Orlando Gomez 100-10mg/5ML Syrup Lamisil AT apply to feet 30units Dimas EDonna 04/10/2011 1% Cream monthly for 7 days Orlando Gomez (antifungal) Senna Take One Tablet By 30tabs Dimas EDonna 01/07/2009 8.6mg Tablets Mouth AT Bedtime Orlando Gomez (Constipation) Maalox [place] Plus Unknown [place] Celexa 1 by mouth every day Unknown 20mg Tablets Depo-Provera every 3 months Unknown 150mg/ml Suspension Diazepam 2 tabs by mouth as 10tabs Dimas E. 10mg Tablets needed prior to Orlando Gomez blood work, dental or medical appointments may repeat 1 hour later as needed History Medications Mobic 1 by mouth every 30tabs M23.41 Luz Maria Maier, 01/21/2017 - 15mg Tablets day with food MD 05/11/2017 Tylenol 8 Hour 1 by mouth 4 times 30tabs Dimas Mackey 01/11/2017 - 650mg a day x 5 days Orlando Gomez 01/16/2017 Tablets ER Amoxicillin/Clavulanat 1 by mouth twice a 20tabs N61.0 Section 08/13/2016 - e Potassium day Pach[place]ara, 11/26/2016 500-125mg M.DDonna Tablets Clotrimazole apply twice daily 90gm B37.9 Section 08/13/2016 - 1% Cream under breast Pachikara, 12/29/2016 Orlando Anucort-HC insert 1 tab after 12units K62.5 Dimas Mackey 12/20/2015 - 25mg each bowel Orlando Gomez 12/28/2016 Suppository movement prn Amoxicillin/Clavulanat Take 1 Tablet 20tabs Unknown 10/13/2015 - e Potassium Twice Daily For 10 12/20/2015 875-125mg Days Tablets Simply Thick Food Use To Honey 180units Dimas Mackey 08/14/2015 - Thickener Consistency Orlando Gomez 05/20/2016 Hydrocortisone-Aloe Apply To Rash 3 28units Dimas Mackey 02/12/2014 - 1% Times A Day as Orlando Gomez 07/26/2015 Cream Needed (Rash) Synthroid 1 by mouth every 90tabs Dimas Mackey 02/09/2014 - 75mcg Tablets day Orlando Gomez 12/21/2014 Simply Thick Food Use To Honey 180units Dimas Mackey 02/02/2014 - Thickener Consistency Orlando Gomez 04/03/2015 Calcium Take One Tablet By 30tabs Dimas Mackey 09/26/2013 - Carbonate-Vitamin D Mouth Every Day Orlando Gomez 04/03/2015 (Supplement) [id number] Tablets Calcium/Vitamin take one tablet by 30tabs Dimas Mackey 08/30/2013 - D/Minerals mouth every day Orlando Gomez 08/30/2013 [id number] (supplement) Tablets Calcium/Vitamin D Take One Tablet By 30tabs Dimas Mackey 08/30/2013 - Mouth Every Day Orlando Gomez 07/26/2015 [id number] Tablets (Supplement) Peridex 0.12% Oral Rinse With 5(cc) 473units Dimas Mackey 06/22/2013 - Rinse So After Brushing Orlando Gomez 04/03/2015 Teeth Twice Daily Calcium/Vitamin D Take One Tablet By 30tacole Barclay 08/22/2012 - Mouth Every Day [place], 08/30/2013 [id number] Tablets (Supplement) MITALI Perry Benzoyl Peroxide apply bid 706.1 Dimas Mackey 06/30/2012 - 10% Gel Orlando Gomez 02/15/2013 Synthroid take 1 tablet by 90tacole Mackey 06/30/2012 - 50mcg Tablets mouth once daily Orlando Gomez 02/09/2014 (hyprothyroidism) Divalproex Sodium DR 4 caps po at 7am, Mustapha Lino 04/08/2012 - 3caps at 4pm and Orlando Benavidez 08/22/2012 125mg Caps Sprinkle 5caps at 8pm Simplythick use as directed 3undeana Mackey 08/06/2011 - Gel Orlando Gomez 08/17/2017 Magnesium Citrate Soln 150ML By Mouth as 300undeana Mackey 07/27/2011 - Needed No Bowel Orlando Gomez 07/26/2015 Movement In 4 Days Chlorhexidine Rinse with 5cc 473ml David Barclay 07/27/2011 - Gluconate after brushing Vinay, 04/03/2015 0.12% Solution teeth twice daily Orlando,MITALI Hydrocortisone apply to rash 3 30gm David Barclay 07/27/2011 - Intensive Healing times a day prn [place], 07/26/2015 1% (rash) Orlando,MITALI Cream Maalox Regular 30cc po q4h for 355ml Dimas Mackey 07/27/2011 - Strength minor stomach Orlando Gomez 07/26/[phone] upset prn Suspension Q-Tussin DM 10 cc PO q 6h prn Dimas Mackey 07/27/2011 - 100mg/5ML cough without Orlando Gomez 07/27/2011 Syrup fever Keflex 1 tab q 12 hrs for 20caps 599.0 David Barclay 11/27/2010 - 500mg Capsules 10 days. Vinay, 07/15/2011 Discontinue MITALI Perry medication on 12/02/10 Synthroid 2 po qd 30tabs Dimas Mackey 11/27/2009 - 25mcg Tablets Orlando Gomez 06/30/2012 Synthroid 1 po qd 30tabs Dimas Mackey 11/22/2009 - 25mcg Tablets Orlando Gomez 05/16/2010 Hydra Aid Take as directed 6Bottles Wang, 01/07/2009 - Orlando Brown 08/06/2011 Minocin 1 PO bid 60caps Dimas Mackey 01/07/2009 - 50mg Capsules Orlando Gomez 06/27/2012 Fiberlax 1 po bid 180units Dimas Mackey 01/07/2009 - 625mg Orlando Gomez 04/03/2015 Calcium-D 1 PO qd 30caps Dimas Mackey 01/07/2009 - [id number] Orlando Gomez 08/22/2012 Capsules Depo-Provera every 3 months Wang, 01/07/2009 - 150mg/ml Orlando Brown 06/02/2010 Suspension Depakote Sprinkles 5 caps @8pm, 4 360caps Unknown 01/07/2009 - 125mg caps @6am, 3 caps 04/08/2012 Caps Sprinkle @4 pm Celexa 1 po qd 30tabs Carlo 01/07/2009 - 20mg Tablets [place], 12/20/2015 Orlando Triazolam 2 tabs po prior to 2tabs Dimas Mackey - 0.25mg Tablets dental visits Orlando Gomez 06/27/2012 Maalox 30 cc PO prn Unknown - 07/27/2011 Robitussin Cough/Chest 10 cc PO q 6h prn Unknown - DM cough without 07/27/2011 Liquid fever Pseudoephedrine HCL prn cold symptoms 30tabs Dimas Mackey - 60mg Orlando Gomez 01/06/2013 Tablets Depo-Provera every 3 months 1ml Dimas Mackey Leilani Gomez M.D. 09/26/2014 150mg/ml Suspension Immunizations CPT Code Status Date Vaccine Lot # [id number] Given 09/08/2017 Tdap - Tetanus/Diptheria/Acellular Pertussis [id number] Given 02/11/2017 Influenza Virus Vaccine, Quadrivalent, Split, Preservative Free [id number] Given 02/07/2015 Influenza Virus Vaccine, Quadrivalent, Split, Preservative Free 89905 Given 02/06/2014 Flu Vaccine Split Virus Preservative Free For Indiv 3Yr Older 91198 Given 01/27/2013 Flu Vaccine Split Virus Preservative Free For Indiv 3Yr Older [id number] Given 02/04/2012 Fluzone Vaccine [id number] Given 06/08/2007 Tetanus And Diptheria (Td) For Adult Use Preservative Free [id number] Refused 08/18/2017 Tdap - Tetanus/Diptheria/Acellular Pertussis [id number] Vital Signs Date Vital Result Comment 11/15/2018 9:29am Height 60 inches 5'0" Weight 185.00 lb Heart Rate 68 /min BP Systolic 118 mmHg BP Diastolic 74 mmHg BMI (Body Mass Index) 36.1 kg/m2 10/19/2018 9:25am Height 60 inches 5'0" Weight 149.00 lb BMI (Body Mass Index) 29.1 kg/m2 02/03/2018 3:26pm Height 60 inches 5'0" Heart Rate 76 /min Respiratory Rate 15 /min Body Temperature 98.3 F 11/16/2017 11:05am Height 60 inches 5'0" Weight 140.00 lb Heart Rate 78 /min BP Systolic Sitting 142 mmHg BP Diastolic Sitting 88 mmHg Respiratory Rate 16 /min BMI (Body Mass Index) 27.3 kg/m2 11/08/2017 3:25pm Height 64 inches 5'4" 10/20/2017 3:03pm Height 64 inches 5'4" Heart Rate 88 /min BP Systolic 92 mmHg BP Diastolic 70 mmHg Respiratory Rate 20 /min Body Temperature 96.7 F 09/30/2017 10:41am Height 64 inches 5'4" Weight 142.00 lb Heart Rate 78 /min Respiratory Rate 18 /min BMI (Body Mass Index) 24.4 kg/m2 08/18/2017 10:13am Height 64 inches 5'4" Weight 140.00 lb done 08-08-16 Heart Rate 88 /min BP Systolic 122 mmHg BP Diastolic 74 mmHg O2 % BldC Oximetry 98 % BMI (Body Mass Index) 24.0 kg/m2 05/12/2017 10:40am Height 64 inches 5'4" Weight 140.00 lb Heart Rate 80 /min BP Systolic Sitting 116 mmHg BP Diastolic Sitting 70 mmHg Respiratory Rate 16 /min BMI (Body Mass Index) 24.0 kg/m2 02/04/2017 10:56am Height 64 inches 5'4" Weight 142.00 lb BP Systolic 98 mmHg BP Diastolic 60 mmHg Body Temperature 97.6 F BMI (Body Mass Index) 24.4 kg/m2 01/21/2017 11:08am Height 64 inches 5'4" Weight 142.00 lb Heart Rate 74 /min BP Systolic 92 mmHg BP Diastolic 68 mmHg Body Temperature 97.0 F BMI (Body Mass Index) 24.4 kg/m2 01/15/2017 4:08pm BP Systolic 118 mmHg BP Diastolic 82 mmHg 12/30/2016 4:03pm Weight 140.12 lb Heart Rate 103 /min Body Temperature 97.7 F O2 % BldC Oximetry 92 % 11/26/2016 4:33pm Weight 140.50 lb Heart Rate 89 /min BP Systolic Sitting 124 mmHg BP Diastolic Sitting 68 mmHg Body Temperature 98.9 F O2 % BldC Oximetry 98 % 08/20/2016 10:35am Heart Rate 70 /min 08/13/2016 11:02am Weight 141.12 lb Heart Rate 67 /min Body Temperature 98.1 F 08/03/2016 10:28am Heart Rate 68 /min BP Systolic Sitting 124 mmHg BP Diastolic Sitting 76 mmHg Respiratory Rate 15 /min Body Temperature 97.9 F O2 % BldC Oximetry 98 % 07/28/2016 10:55am Respiratory Rate 16 /min 05/20/2016 11:03am Height 60 inches 5'0" Weight 138.00 lb Heart Rate 70 /min Respiratory Rate 17 /min BMI (Body Mass Index) 26.9 kg/m2 12/20/2015 11:59am Heart Rate 78 /min Body Temperature 97.6 F 10/16/2015 3:48pm Weight 140.00 lb Heart Rate 74 /min BP Systolic Sitting 112 mmHg BP Diastolic Sitting 74 mmHg Body Temperature 98.0 F 08/29/2015 3:25pm Weight 140.00 lb Heart Rate 78 /min Body Temperature 97.5 F 07/26/2015 10:15am Height 60 inches 5'0" Weight 140.00 lb Heart Rate 81 /min Body Temperature 98.5 F O2 % BldC Oximetry 99 % BMI (Body Mass Index) 27.3 kg/m2 04/03/2015 11:31am Height 60 inches 5'0" Weight 137.00 lb Heart Rate 68 /min Respiratory Rate 16 /min BMI (Body Mass Index) 26.8 kg/m2 07/19/2014 11:22am Height 60 inches 5'0" Weight 142.00 lb Heart Rate 74 /min BP Systolic Sitting 110 mmHg BP Diastolic Sitting 76 mmHg BMI (Body Mass Index) 27.7 kg/m2 05/01/2014 10:56am Weight 160.00 lb Heart Rate 74 /min BP Systolic Sitting 95 mmHg BP Diastolic Sitting 69 mmHg Body Temperature 98.1 F O2 % BldC Oximetry 99 % 03/06/2014 9:54am Weight 148.00 lb Heart Rate 80 /min BP Systolic Sitting 108 mmHg BP Diastolic Sitting 78 mmHg Body Temperature 98.0 F 2014 12:07pm Height 60 inches 5'0" Weight 160.00 lb Heart Rate 74 /min Respiratory Rate 16 /min BMI (Body Mass Index) 31.2 kg/m2 07/03/2013 11:05am Height 60 inches 5'0" Weight 150.00 lb Heart Rate 74 /min BP Systolic Sitting 110 mmHg BP Diastolic Sitting 70 mmHg BMI (Body Mass Index) 29.3 kg/m2 02/15/2013 12:00pm Heart Rate 76 /min BP Systolic Sitting 130 mmHg BP Diastolic Sitting 80 mmHg Respiratory Rate 18 /min 06/30/2012 9:45am Height 60 inches 5'0" Weight 190.00 lb unable to get jacket and shoes off. Heart Rate 87 /min BP Systolic Sitting 124 mmHg BP Diastolic Sitting 70 mmHg BMI (Body Mass Index) 37.1 kg/m2 09/28/2011 3:53pm Height 60 inches 5'0" Weight 151.00 lb Heart Rate 84 /min Body Temperature 98.0 F BMI (Body Mass Index) 29.5 kg/m2 06/05/2011 9:53am Height 60 inches 5'0" Weight 146.00 lb Heart Rate 74 /min BMI (Body Mass Index) 28.5 kg/m2 11/27/2010 11:24am Weight 146.00 lb Heart Rate 74 /min BP Systolic Sitting 100 mmHg BP Diastolic Sitting 60 mmHg Body Temperature 98.0 F 09/24/2010 4:23pm Heart Rate 80 /min BP Systolic Sitting 122 mmHg BP Diastolic Sitting 80 mmHg 09/09/2010 10:09am Weight 145.00 lb Heart Rate 64 /min BP Systolic Sitting 110 mmHg BP Diastolic Sitting 64 mmHg 10/08/2009 1:18pm Weight 155.00 lb Heart Rate 72 /min BP Systolic Sitting 104 mmHg BP Diastolic Sitting 78 mmHg Body Temperature 97.8 F 01/07/2009 11:07am Height 60 inches 5'0" Weight 134.75 lb Heart Rate 60 /min BP Systolic Sitting 118 mmHg BP Diastolic Sitting 84 mmHg BMI (Body Mass Index) 26.3 kg/m2 Results Test Date Facility Test Result H/L Range Note Comp Metabolic Panel 07/30/2018 [facility] Sodium 139 mmol/L N 135-[address] [place] [address] [phone] Potassium 4.7 mmol/L N 3.5-5.0 Chloride 104 mmol/L N 101-111 Co2 Carbon Dioxide 25 mmol/L N 22-32 Anion Gap 10 mmol/L N 2-11 Glucose 79 mg/dL N 70-100 Blood Urea Nitrogen 14 mg/dL N 6-24 Creatinine 0.67 mg/dL N 0.51-0.95 BUN/Creatinine Ratio 20.9 High 8-20 Calcium 9.5 mg/dL N 8.6-10.3 Total Protein 7.3 g/dL N 6.4-8.9 Albumin 3.9 g/dL N 3.2-5.2 Globulin 3.4 g/dL N 2-4 Albumin/Globulin Ratio 1.1 N 1-3 Total Bilirubin 0.30 mg/dL N 0.2-1.0 Alkaline Phosphatase 49 U/L N 34-104 Alt 11 U/L N 7-52 Ast 14 U/L N 13-39 Egfr Non- 95.6 >60 Egfr 115.7 >60 1 Laboratory test 07/30/2018 [facility] Valproic Acid 139.0 High 50-[address] (Depakene) g/[place] [address] [phone] CBC Auto Diff 07/30/2018 [facility] White Blood 9.3 N 3.5- 10.[address] Count 10^3/[place] [address] [phone] Red Blood Count 4.20 10^6/uL N 3.70-4.87 Hemoglobin 14.4 g/dL N 12.0-16.0 Hematocrit 43 % High 33-41 Mean Corpuscular Volume 102 fL High 80-97 Mean Corpuscular Hemoglobin 34 pg High 27-31 Mean Corpuscular HGB Conc 34 g/dL N 31-36 Red Cell Distribution Width 14 % N 10.5-15 Platelet Count 145 10^3/uL Low 150-450 Mean Platelet Volume 9.9 fL N 7.4-10.4 Abs Neutrophils 6.7 10^3/uL N 1.5-7.7 Abs Lymphocytes 1.6 10^3/uL N 1.0-4.8 Abs Monocytes 1.0 10^3/uL High 0-0.8 Abs Eosinophils 0 10^3/uL N 0-0.6 Abs Basophils 0 10^3/uL N 0-0.2 Abs Nucleated RBC 0 10^3/uL Granulocyte % 71.7 % Lymphocyte % 17.1 % Monocyte % 10.7 % Eosinophil % 0.1 % Basophil % 0.4 % Nucleated Red Blood Cells % 0.1 CBC Auto Diff 01/04/2018 [facility] White Blood 4.6 10^3/uL N 3.5-10.[address] [place] [address] [phone] Red Blood Count 3.88 10^6/uL Low 4.00-5.40 Hemoglobin 13.4 g/dL N 12.0-16.0 Hematocrit 39 % N 35-47 Mean Corpuscular Volume 101 fL High 80-97 Mean Corpuscular Hemoglobin 35 pg High 27-31 Mean Corpuscular HGB Conc 34 g/dL N 31-36 Red Cell Distribution Width 13 % N 10.5-15 Platelet Count 114 10^3/uL Low 150-450 Mean Platelet Volume 9.6 um3 N 7.4-10.4 Abs Neutrophils 2.5 10^3/uL N 1.5-7.7 Abs Lymphocytes 1.6 10^3/uL N 1.0-4.8 Abs Monocytes 0.5 10^3/uL N 0-0.8 Abs Eosinophils 0 10^3/uL N 0-0.6 Abs Basophils 0 10^3/uL N 0-0.2 Abs Nucleated RBC 0 10^3/uL Granulocyte % 53.6 % N 38-83 Lymphocyte % 36.0 % N 25-47 Monocyte % 10.1 % High 0-7 Eosinophil % 0 % N 0-6 Basophil % 0.3 % N 0-2 Nucleated Red Blood Cells % 0 Comp Metabolic Panel 01/04/2018 [facility] Sodium 137 mmol/L N 135-[address] [place] [address] [phone] Potassium 4.4 mmol/L N 3.5-5.0 Chloride 105 mmol/L N 101-111 Co2 Carbon Dioxide 27 mmol/L N 22-32 Anion Gap 5 mmol/L N 2-11 Glucose 86 mg/dL N 70-100 Blood Urea Nitrogen 13 mg/dL N 6-24 Creatinine 0.69 mg/dL N 0.51-0.95 BUN/Creatinine Ratio 18.8 N 8-20 Calcium 8.9 mg/dL N 8.6-10.3 Total Protein 6.7 g/dL N 6.4-8.9 Albumin 3.7 g/dL N 3.2-5.2 Globulin 3.0 g/dL N 2-4 Albumin/Globulin Ratio 1.2 N 1-3 Total Bilirubin 0.30 mg/dL N 0.2-1.0 Alkaline Phosphatase 35 U/L N 34-104 Alt 10 U/L N 7-52 Ast 13 U/L N 13-39 Egfr Non- 92.9 >60 Egfr 112.4 >60 2 Laboratory test 01/04/2018 [facility] Valproic Acid 130.0 High 50-[address] (Depakene) g/[place] [address] [phone] TSH (Thyroid Stim Horm) 2.56 mcIU/mL N 0.34-5.60 Free T4 (Free Thyroxine) 1.02 ng/dL N 0.61-1.12 CBC Auto Diff 02/04/2017 [facility] White Blood 7.0 10^3/uL N 3.5-10.[address] Count [place], [place] [id number] [phone] Red Blood Count 3.84 10^6/uL Low 4.0-5.4 Hemoglobin 13.3 g/dL N 12.0-16.0 Hematocrit 39 % N 35-47 Mean Corpuscular Volume 102 fL High 80-97 Mean Corpuscular Hemoglobin 35 pg High 27-31 Mean Corpuscular HGB Conc 34 g/dL N 31-36 Red Cell Distribution Width 13 % N 10.5-15 Platelet Count 112 10^3/uL Low 150-450 Mean Platelet Volume 10 um3 N 7.4-10.4 Abs Neutrophils 3.4 10^3/uL N 1.5-7.7 Abs Lymphocytes 2.9 10^3/uL N 1.0-4.8 Abs Monocytes 0.6 10^3/uL N 0-0.8 Abs Eosinophils 0 10^3/uL N 0-0.6 Abs Basophils 0 10^3/uL N 0-0.2 Abs Nucleated RBC 0 10^3/uL N Granulocyte % 49.4 % N 38-83 Lymphocyte % 41.5 % N 25-47 Monocyte % 8.7 % N 1-9 Eosinophil % 0.1 % N 0-6 Basophil % 0.3 % N 0-2 Nucleated Red Blood Cells % 0.1 N Inr/Protime 02/04/2017 [facility] Inr 0.98 N 0.89-1.11 [address] [place], [place] [id number] [phone] Factor 8 Profile 02/04/2017 [facility] Special Coag Performed N 3 [address] [place] [address] [phone] Coagulation Factor VIII Activi 183 % N 55 - 200 4 von Willebrand Factor Antigen 216 % Abnormal 55 - 200 5 VonWillibrand Factor Activity 220 % Abnormal 55 - 200 6 von Willebrand Panel Inter See Comment N 7 von Willebrand Panel Reviewed RRafita Nava <SEE NOTE> N 8 Laboratory test finding 02/04/2017 [facility] LDH 191 U/L N 140-271 [address] [place] [address] [phone] Factor 11 Activity 122 % N 55 - 150 9 Comp Metabolic Panel 02/04/2017 [facility] Sodium 134 mmol/L N 133-145 [address] [place] [address] [phone] Potassium 4.5 mmol/L N 3.5-5.0 Chloride 102 mmol/L N 101-111 Co2 Carbon Dioxide 28 mmol/L N 22-32 Anion Gap 4 mmol/L N 2-11 Glucose 73 mg/dL N 70-100 Blood Urea Nitrogen 21 mg/dL N 6-24 Creatinine 0.71 mg/dL N 0.51-0.95 BUN/Creatinine Ratio 29.6 High 8-20 Calcium 9.0 mg/dL N 8.6-10.3 Total Protein 7.0 g/dL N 6.4-8.9 Albumin 3.7 g/dL N 3.2-5.2 Globulin 3.3 g/dL N 2-4 Albumin/Globulin Ratio 1.1 N 1-3 Total Bilirubin 0.30 mg/dL N 0.2-1.0 Alkaline Phosphatase 40 U/L N 34-104 Alt 10 U/L N 7-52 Ast 13 U/L N 13-39 Egfr Non- 90.3 N >60 Egfr 116.1 N >60 10 Laboratory test 01/12/2017 [facility] Vitamin D 54.4 High 20- 50 11, [address] Total ng/[place] [address] [phone] CBC Auto Diff 01/12/2017 [facility] White Blood 4.9 N 3.5- 10.[address] Count 10^3/[place] [address] [phone] Red Blood Count 3.73 10^6/uL Low 4.0-5.4 Hemoglobin 12.9 g/dL N 12.0-16.0 Hematocrit 38 % N 35-47 Mean Corpuscular Volume 102 fL High 80-97 Mean Corpuscular Hemoglobin 35 pg High 27-31 Mean Corpuscular HGB Conc 34 g/dL N 31-36 Red Cell Distribution Width 13 % N 10.5-15 Platelet Count 147 10^3/uL Low 150-450 Mean Platelet Volume 10 um3 N 7.4-10.4 Abs Neutrophils 2.6 10^3/uL N 1.5-7.7 Abs Lymphocytes 1.7 10^3/uL N 1.0-4.8 Abs Monocytes 0.5 10^3/uL N 0-0.8 Abs Eosinophils 0 10^3/uL N 0-0.6 Abs Basophils 0 10^3/uL N 0-0.2 Abs Nucleated RBC 0 10^3/uL N Granulocyte % 53.4 % N 38-83 Lymphocyte % 35.5 % N 25-47 Monocyte % 10.8 % High 1-9 Eosinophil % 0.1 % N 0-6 Basophil % 0.2 % N 0-2 Nucleated Red Blood Cells % 0 N Laboratory test 01/12/2017 [facility] Valproic Acid 122.0 High 50-100 [address] (Depakene) g/[place] [address] [phone] TSH (Thyroid Stim Horm) 0.76 mcIU/mL N 0.34-5.60 14 Comp Metabolic Panel 01/12/2017 [facility] Sodium 137 mmol/L N 133-[address] [place] [address] [phone] Potassium 4.6 mmol/L N 3.5-5.0 Chloride 105 mmol/L N 101-111 Co2 Carbon Dioxide 28 mmol/L N 22-32 Anion Gap 4 mmol/L N 2-11 Glucose 77 mg/dL N 70-100 Blood Urea Nitrogen 17 mg/dL N 6-24 Creatinine 0.70 mg/dL N 0.51-0.95 BUN/Creatinine Ratio 24.3 High 8-20 Calcium 9.2 mg/dL N 8.6-10.3 Total Protein 6.8 g/dL N 6.4-8.9 Albumin 3.6 g/dL N 3.2-5.2 Globulin 3.2 g/dL N 2-4 Albumin/Globulin Ratio 1.1 N 1-3 Total Bilirubin 0.30 mg/dL N 0.2-1.0 Alkaline Phosphatase 43 U/L N 34-104 Alt 10 U/L N 7-52 Ast 13 U/L N 13-39 Egfr Non- 91.8 N >60 Egfr 118.0 N >60 15 CBC Auto Diff 11/27/2016 [facility] White Blood 4.3 10^3/uL N 3.5-10.[address] [place] [address] [phone] Red Blood Count 3.71 10^6/uL Low 4.0-5.4 Hemoglobin 12.9 g/dL N 12.0-16.0 Hematocrit 39 % N 35-47 Mean Corpuscular Volume 104 fL High 80-97 Mean Corpuscular Hemoglobin 35 pg High 27-31 Mean Corpuscular HGB Conc 34 g/dL N 31-36 Red Cell Distribution Width 14 % N 10.5-15 Platelet Count 111 10^3/uL Low 150-450 Mean Platelet Volume 10 um3 N 7.4-10.4 Abs Neutrophils 2.2 10^3/uL N 1.5-7.7 Abs Lymphocytes 1.6 10^3/uL N 1.0-4.8 Abs Monocytes 0.5 10^3/uL N 0-0.8 Abs Eosinophils 0 10^3/uL N 0-0.6 Abs Basophils 0.1 10^3/uL N 0-0.2 Abs Nucleated RBC 0 10^3/uL N Granulocyte % 50.9 % N 38-83 Lymphocyte % 36.2 % N 25-47 Monocyte % 11.5 % High 1-9 Eosinophil % 0 % N 0-6 Basophil % 1.4 % N 0-2 Nucleated Red Blood Cells % 0 N Herpes Simplex 08/16/2016 [facility] Herpes Source RIGHT LOWER LIP N PCR [address] [place], [place] [id number] [phone] HSV 1 PCR Negative N Negative HSV 2 PCR Negative N Negative 16 Wound 08/13/2016 [facility] Wound/Misc SEE RESULT 17 Culture/Sensi [address] [place] [address] Stain [phone] Wound 08/13/2016 [facility] Wound/Misc SEE RESULT 18 Culture/Sensi [address] [place] [address] Stain [phone] CBC Auto Diff 01/10/2016 [facility] White Blood Count 4.1 10^3/ uL N 3.5- [address] 10.8 [place] [address] [phone] Red Blood Count 3.86 10^6/uL Low 4.0-5.4 Hemoglobin 13.0 g/dL N 12.0-16.0 Hematocrit 39 % N 35-47 Mean Corpuscular Volume 101 fL High 80-97 Mean Corpuscular Hemoglobin 34 pg High 27-31 Mean Corpuscular HGB Conc 33 g/dL N 31-36 Red Cell Distribution Width 13 % N 10.5-15 Platelet Count 103 10^3/uL Low 150-450 Mean Platelet Volume 10 um3 N 7.4-10.4 Abs Neutrophils 2.1 10^3/uL N 1.5-7.7 Abs Lymphocytes 1.5 10^3/uL N 1.0-4.8 Abs Monocytes 0.5 10^3/uL N 0-0.8 Abs Eosinophils 0 10^3/uL N 0-0.6 Abs Basophils 0 10^3/uL N 0-0.2 Abs Nucleated RBC 0 10^3/uL N Granulocyte % 50.5 % N 38-83 Lymphocyte % 37.4 % N 25-47 Monocyte % 11.6 % High 1-9 Eosinophil % 0.1 % N 0-6 Basophil % 0.4 % N 0-2 Nucleated Red Blood Cells % 0 N Comp Metabolic Panel 01/10/2016 [facility] Sodium 138 mmol/L N 133-145 [address] [place] [address] [phone] Potassium 4.1 mmol/L N 3.5-5.0 Chloride 107 mmol/L N 101-111 Co2 Carbon Dioxide 26 mmol/L N 22-32 Anion Gap 5 mmol/L N 2-11 Glucose 76 mg/dL N 70-100 Blood Urea Nitrogen 17 mg/dL N 6-24 Creatinine 0.63 mg/dL N 0.51-0.95 BUN/Creatinine Ratio 27.0 High 8-20 Calcium 8.6 mg/dL N 8.6-10.3 Total Protein 6.3 g/dL Low 6.4-8.9 Albumin 3.4 g/dL N 3.2-5.2 Globulin 2.9 g/dL N 2-4 Albumin/Globulin Ratio 1.2 N 1-3 Total Bilirubin 0.30 mg/dL N 0.2-1.0 Alkaline Phosphatase 31 U/L Low 34-104 Alt 10 U/L N 7-52 Ast 14 U/L N 13-39 Egfr Non- 104.1 N >60 Egfr 133.9 N >60 20 Lipid Profile 01/10/2016 [facility] Triglycerides 78 mg/dL N 21 (Trig/Chol/HDL) [address] [place] [address] [phone] Cholesterol 156 mg/dL N 22 HDL Cholesterol 41.6 mg/dL N 23 LDL Cholesterol 99 mg/dL N 24 Laboratory test 01/10/2016 [facility] Valproic Acid 125.0 High 50-100 [address] (Depakene) g/mL [place], [place] [id number] [phone] TSH (Thyroid Stim Horm) 3.76 mcIU/mL N 0.34-5.60 26 Free T4 (Free Thyroxine) 0.94 ng/dL N 0.61-1.12 27 Hemoglobin A1c (Glyco HGB) 5.3 % N Less than 6.0 28 Lipid Profile 01/29/2015 [facility] Triglycerides 69 mg/dL N 29 (Trig/Chol/HDL) [address] [place] [address] [phone] Cholesterol 162 mg/dL N 30 HDL Cholesterol 40.4 mg/dL N 31 LDL Cholesterol 108 mg/dL N 32 Basic Metabolic Panel 01/29/2015 [facility] Sodium 138 mmol/L N 133-[address] [place] [address] [phone] Potassium 4.4 mmol/L N 3.5-5.0 Chloride 104 mmol/L N 101-111 Co2 Carbon Dioxide 28 mmol/L N 22-32 Anion Gap 6 mmol/L N 2-11 Glucose 81 mg/dL N 70-100 Blood Urea Nitrogen 15 mg/dL N 6-24 Creatinine 0.70 mg/dL N 0.51-0.95 BUN/Creatinine Ratio 21.4 High 8-20 Calcium 8.6 mg/dL N 8.6-10.3 Egfr Non- 92.7 N >60 Egfr 119.2 N >60 33 Laboratory test 01/29/2015 [facility] TSH (Thyroid 2.56 ?IU/mL N 0.34-5.[address] Stim Horm) [place] [address] [phone] Valproic Acid (Depakene) 110.0 g/mL High 50-100 Laboratory test 03/19/2014 [facility] TSH (Thyroid 2.62 IU/mL N 0.34-5.[address] [place] [address] Horm) [phone] Free T4 0.92 ng/mL N 0.61-1.12 CBC No Diff 01/31/2014 [facility] White Blood 4.6 10^3/uL Low 4.8-10.[address] [place] [address] [phone] Red Blood Count 3.69 10^6/uL Low 4.0-5.4 Hemoglobin 12.7 g/dL N 12.0-16.0 Hematocrit 38 % N 35-47 Mean Corpuscular Volume 103 fL High 80-97 Mean Corpuscular Hemoglobin 34 pg High 27-31 Mean Corpuscular HGB Conc 33 g/dL N 31-36 Red Cell Distribution Width 13 % N 10.5-15 Platelet Count 110 10^3/uL Low 150-450 Mean Platelet Volume 10 um3 N 7.4-10.4 Comp Metabolic Panel 01/31/2014 [facility] Sodium 136 mmol/L N 133-145 [address] [place] [address] [phone] Potassium 4.5 mmol/L N 3.7-5.6 Chloride 105 mmol/L N 101-111 Co2 Carbon Dioxide 28 mmol/L N 22-32 Anion Gap 3 mmol/L N 2-11 Glucose 78 mg/dL N 70-100 Blood Urea Nitrogen 21 mg/dL N 6-24 Creatinine 0.80 mg/dL N 0.51-0.95 BUN/Creatinine Ratio 26.3 High 8-20 Calcium 8.5 mg/dL Low 8.6-10.3 Total Protein 6.2 g/dL Low 6.4-8.9 Albumin 3.5 g/dL N 3.2-5.2 Globulin 2.7 g/dL N 2-4 Albumin/Globulin Ratio 1.3 N 1-3 Total Bilirubin 0.30 mg/dL N 0.2-1.0 Alkaline Phosphatase 31 U/L Low 34-104 Alt 10 U/L N 7-52 Ast 13 U/L N 13-39 Egfr Non- 79.9 N >60 Egfr 102.7 N >60 34 Laboratory test 01/31/2014 [facility] Valproic Acid 120 g/mL High 50.0-100.[address] [place] [address] [phone] TSH (Thyroid Stimulating Horm) 6.99 IU/mL High 0.34-5.60 Laboratory test 03/11/2013 [facility] Valproic 101.9 High 50.0 -100.0 [address] Acid g/mL [place], [place] [id number] [phone] Urinalysis 01/17/2013 [facility] Urine Color Michelle [address] [place] [address] [phone] Urine Appearance Clear Urine Specific [place] 1.027 1.010-1.030 Urine Esterase 1+ Abnormal Negative Urine Nitrate Negative Negative Urine Urobilinogen Negative E.U./dL Negative Urine Protein Negative mg/dL Negative Urine pH 7.0 5-9 Urine Blood Negative Negative Urine Ketones Trace mg/dL Abnormal Negative Urine Bilirubin Negative Negative Urine Glucose Negative mg/dL Negative Urine Microscopic 01/17/2013 [facility] Urine WBC 2+ (>10-30 None Seen [address] /hpf) [place] [address] [phone] Urine RBC None Seen None Seen Urine Mucus Present /lpf Absent Urine Epithelial Cells 2+ Squamous /hpf None Seen Bacteria Urine 2+ None Seen Urine Culture And 01/17/2013 [facility] Urine Culture (SEE NOTE ) [address] [place] [address] [phone] CBC Auto Diff 01/17/2013 [facility] White Blood 6.6 10^3/uL 4.8-[address] Count .8 [place] [address] [phone] Red Blood Count 3.77 10^6/uL Low 4.0-5.4 Hemoglobin 12.7 g/dL 12.0-16.0 Hematocrit 39 % 35-47 Mean Corpuscular Volume 103 fL High 80-97 Mean Corpuscular Hemoglobin 34 pg High 27-31 Mean Corpuscular HGB Conc 33 g/dL 31-36 Red Cell Distribution Width 13 % 10.5-15 Platelet Count 139 10^3/uL Low 150-450 Mean Platelet Volume 9 um3 7.4-10.4 Abs Neutrophils 3.2 10^3/uL 1.5-7.7 Abs Lymphocytes 2.6 10^3/uL 1.0-4.8 Abs Monocytes 0.7 10^3/uL 0-0.8 Abs Eosinophils 0 10^3/uL 0-0.6 Abs Basophils 0 10^3/uL 0-0.2 Abs Nucleated RBC 0 10^3/uL Granulocyte % 48.6 % 38-83 Lymphocyte % 39.5 % 25-47 Monocyte % 11.3 % High 1-9 Eosinophil % 0.2 % 0-6 Basophil % 0.4 % 0-2 Nucleated Red Blood Cells % 0.1 Comp Metabolic Panel 01/17/2013 [facility] Sodium 138 mmol/L 133-[address] [place] [address] [phone] Potassium 3.8 mmol/L 3.5-5.0 Chloride 106 mmol/L 101-111 Co2 Carbon Dioxide 29.0 mmol/L 22-32 Anion Gap 3.0 mmol/L 2-11 Glucose 85 mg/dL 70-100 Blood Urea Nitrogen 14 mg/dL 6-24 Creatinine 0.60 mg/dL 0.50-1.40 BUN/Creatinine Ratio 23.3 High 8-20 Calcium 8.6 mg/dL 8.1-9.9 Total Protein 6.1 g/dL Low 6.2-8.1 Albumin 2.8 g/dL Low 3.6-5.4 Globulin 3.3 g/dL 2-4 Albumin/Globulin Ratio 0.8 Low 1-3 Total Bilirubin 0.6 mg/dL 0.4-1.5 Alkaline Phosphatase 31 U/L 30-110 Alt 15 U/L 14-54 Ast 15 U/L 12-42 Egfr Non- 111.9 >60 Egfr 143.9 >60 38 Laboratory test 01/17/2013 [facility] Magnesium 2.0 mg/dL 1.7 -2.[address] [place] [address] [phone] Valproic Acid 86.3 g/mL 50.0-100.0 39 CBC With 01/14/2013 [facility] White Blood 6.4 10^3/uL 4.8- 10.8 Manual Diff [address] [place] [address] [phone] Red Blood Count 4.02 10^6/uL 4.0-5.4 Hemoglobin 13.7 g/dL 12.0-16.0 Hematocrit 41 % 35-47 Mean Corpuscular Volume 103 fL High 80-97 Mean Corpuscular Hemoglobin 34 pg High 27-31 Mean Corpuscular HGB Conc 33 g/dL 31-36 Red Cell Distribution Width 13 % 10.5-15 Platelet Count 131 10^3/uL Low 150-450 Mean Platelet Volume 10 um3 7.4-10.4 Abs Neutrophils 4.3 10^3/uL 1.5-7.7 Abs Lymphocytes 1.0 10^3/uL 1.0-4.8 Abs Monocytes 0.9 10^3/uL High 0-0.8 Abs Eosinophils 0.1 10^3/uL 0-0.6 Abs Basophils 0.1 10^3/uL 0-0.2 Abs Nucleated RBC 0 10^3/uL Neutrophil % 57 % 38-83 Band % 1 % 0-8 Lymphocytes % 25 % 25-47 Monocytes % 17 % High 0-13 RBC Morphology Normal Normal Comp Metabolic Panel 01/14/2013 [facility] Sodium 136 mmol/L 133-[address] [place] [address] [phone] Potassium 4.1 mmol/L 3.5-5.0 Chloride 105 mmol/L 101-111 Co2 Carbon Dioxide 26.0 mmol/L 22-32 Anion Gap 5.0 mmol/L 2-11 Glucose 92 mg/dL 70-100 Blood Urea Nitrogen 14 mg/dL 6-24 Creatinine 0.60 mg/dL 0.50-1.40 BUN/Creatinine Ratio 23.3 High 8-20 Calcium 9.0 mg/dL 8.1-9.9 Total Protein 5.9 g/dL Low 6.2-8.1 Albumin 3.1 g/dL Low 3.6-5.4 Globulin 2.8 g/dL 2-4 Albumin/Globulin Ratio 1.1 1-3 Total Bilirubin 0.6 mg/dL 0.4-1.5 Alkaline Phosphatase 37 U/L 30-110 Alt 16 U/L 14-54 Ast 15 U/L 12-42 Egfr Non- 111.9 >60 Egfr 143.9 >60 40 Laboratory test 01/14/2013 [facility] Valproic 118.6 High 50.0 -100.0 [address] Acid g/[place] [address] [phone] TSH (Thyroid Stimulating Horm) 2.34 miu/mL 0.34-5.60 42 Comp Metabolic Panel 09/24/2012 [facility] Sodium 136 mmol/L 133-145 [address] [place] [address] [phone] Potassium 4.9 mmol/L 3.5-5.0 Chloride 107 mmol/L 101-111 Co2 Carbon Dioxide 25.0 mmol/L 22-32 Anion Gap 4.0 mmol/L 2-11 Glucose 74 mg/dL 70-100 Blood Urea Nitrogen 14 mg/dL 6-24 Creatinine 0.60 mg/dL 0.50-1.40 BUN/Creatinine Ratio 23.3 High 8-20 Calcium 8.8 mg/dL 8.1-9.9 Total Protein 5.8 g/dL Low 6.2-8.1 Albumin 3.1 g/dL Low 3.6-5.4 Globulin 2.7 g/dL 2-4 Albumin/Globulin Ratio 1.1 1-3 Total Bilirubin 0.6 mg/dL 0.4-1.5 Alkaline Phosphatase 26 U/L Low 30-110 Alt 12 U/L Low 14-54 Ast 16 U/L 12-42 Egfr Non- 111.9 >60 Egfr 143.9 >60 43 Laboratory test 09/24/2012 [facility] Valproic 102.4 High 50.0 -100.0 [address] Acid g/mL [place], [place] [address] [phone] Laboratory test 11/21/2011 [facility] Valproic 112.1 High 50- 100 [address] Acid g/[place] [address] (Depakene) [phone] TSH 3.32 MIU/ML 0.34-5.60 Comp Metabolic Panel 11/21/2011 [facility] Sodium 135 mmol/L 135-145 [address] [place] [address] [phone] Potassium 4.0 mmol/L 3.5-5.0 Chloride 107 mmol/L 101-111 Co2 (Carbon Dioxide) 26.0 mmol/L 22-32 Anion Gap 2.0 mmol/L 2-11 46 Glucose 92 mg/dL 70-100 BUN 12 mg/dL 6-24 Creatinine 0.7 mg/dL 0.50-1.40 One Over Creatinine 1.42 BUN/Creatinine Ratio 17.1 8-20 Calcium 8.7 mg/dL 8.1-9.9 Total Protein 5.8 GM/DL Low 6.2-8.1 Albumin 3.1 GM/DL Low 3.6-5.4 Globulin 2.7 GM/DL 2-4 Albumin/Globulin Ratio 1.1 1-3 Bilirubin Total 0.6 mg/dL 0.4-1.5 47 Alkaline Phosphatase 33 U/L 30-110 Alt (SGPT) 14 U/L 14-54 Ast (Sgot) 15 U/L 12-42 eGFR Non- 94.2 > 60 eGFR 121.1 > 60 48 CBC With Manual 11/21/2011 [facility] White Blood 6.1 CUMM 4.8-10.[address] [place] [address] [phone] Red Cell Count 3.51 CUMM Low 4.2-5.4 Hemoglobin 12.7 g/dL 12.0-16.0 Hematocrit 37 % 35-47 Mean Corpuscular Volume 104 um3 High 79-97 Mean Corpuscular Hemoglob 36 pg High 27-31 Mean Corpuscular HGB Cone 35 g/dL 32-36 Redcell Distribution WDTH 13 % 10.5-15 Platelet Count 110 CUMM Low 150-450 Mean Platelet Volume 10.4 um3 7.4-10.4 Absolute Neutrophil Count 3.7 1.5-7.7 Polysegmented Neutrophil 60 % 38-83 Band Neutrophil 1 % 0-8 Lymphocyte 28 % 25-47 Monocyte 10 % 0-13 Eosinophil 1 % 0-6 RBC Morphology NORMAL Urine Culture & 09/28/2011 [facility] M [address] <SEE NOTE> [place] [address] [phone] Urinalysis 09/28/2011 [facility] Ua Color YELLOW Yellow W/Microscopic [address] [place] [address] [phone] Appearance-Urine CLEAR Clear Specific [place]-Ur 1.016 1.010-1.030 Esterase-Urine 2+ Abnormal Negative Nitrite NEGATIVE Negative Mcihreirtnbu-Sv-LWD NEGATIVE Negative Protein-Urine NEGATIVE Negative PH-Urine 7.5 5-9 Blood-Urine NEGATIVE Negative Ketones-Urine NEGATIVE Negative Bilirubin-Ur NEGATIVE Negative Glucose-Urine NEGATIVE Negative WBC-Urine 5-10 Abnormal 0-5 RBC-Urine 0-2 0-2 Epith Cells-Ur FEW None Bacteria-Urine TRACE None CBC With Manual 07/04/2011 [facility] White Blood 5.0 CUMM 4.8-10.8 [address] [place] [address] [phone] Red Cell Count 3.55 CUMM Low 4.2-5.4 Hemoglobin 12.6 g/dL 12.0-16.0 Hematocrit 36 % 35-47 Mean Corpuscular Volume 103 um3 High 79-97 Mean Corpuscular Hemoglob 36 pg High 27-31 Mean Corpuscular HGB Cone 35 g/dL 32-36 Redcell Distribution WDTH 13 % 10.5-15 Platelet Count 97 CUMM Low 150-450 Mean Platelet Volume 10.4 um3 7.4-10.4 Polysegmented Neutrophil 44 % 38-83 Band Neutrophil 1 % 0-8 Lymphocyte 41 % 25-47 Monocyte 14 % High 0-13 Absolute Neutrophil Count 2.2 Macrocytosis 1+ Platelet Evaluation (SEE NOTE) 51 Laboratory test 07/04/2011 [facility] Valproic Acid 121.3 High 50-100 [address] (Depakene) g/mL [place], [place] [id number] [phone] Thyroxine Free 0.84 ng/dL 0.61-1.24 TSH 4.14 MIU/ML 0.34-5.60 Urine Culture & 11/27/2010 [facility] Urine Culture NF1 [address] [place] [address] [phone] Laboratory test 10/24/2010 [facility] Valproic Acid 119.0 High 50-10 54, [address] (Depakene) g/mL 0 [place], [place] [id number] [phone] Thyroxine Free 0.94 ng/dL 0.61-1.24 TSH 0.55 MIU/ML 0.34-5.60 Laboratory test 09/09/2010 [facility] Cytology <SEE [address] NOTE> [place] [address] [phone] Comp Metabolic 09/09/2010 [facility] Sodium 136 mmol/L 135-[address] [place] [address] [phone] Potassium 4.3 mmol/L 3.5-5.0 Chloride 102 mmol/L 101-111 Co2 (Carbon Dioxide) 28.0 mmol/L 22-32 Anion Gap 6.0 mmol/L 2-11 57 Glucose 71 mg/dL 70-100 BUN 18 mg/dL 6-24 Creatinine 0.80 mg/dL 0.50-1.40 One Over Creatinine 1.20 BUN/Creatinine Ratio 22.5 High 8-20 Calcium 8.7 mg/dL 8.1-9.9 Total Protein 6.0 GM/DL Low 6.2-8.1 Albumin 3.2 GM/DL Low 3.6-5.4 Globulin 2.8 GM/DL 2-4 Albumin/Globulin Ratio 1.1 1-3 Bilirubin Total 0.7 mg/dL 0.4-1.5 58 Alkaline Phosphatase 35 U/L 30-110 Alt (SGPT) 16 U/L 14-54 Ast (Sgot) 18 U/L 12-42 eGFR Non- 81.2 > 60 eGFR 104.4 > 60 59 Laboratory test 09/09/2010 [facility] Valproic Acid 126.5 High 50-100 [address] (Depakene) g/[place] [address] [phone] TSH 6.60 MIU/ML High 0.34-5.60 CBC With Manual 09/09/2010 [facility] White Blood 5.2 CUMM 4.8-10.[address] [place] [address] [phone] Red Cell Count 3.56 CUMM Low 4.2-5.4 Hemoglobin 12.7 g/dL 12.0-16.0 Hematocrit 37 % 35-47 Mean Corpuscular Volume 105 um3 High 79-97 Mean Corpuscular Hemoglob 36 pg High 27-31 Mean Corpuscular HGB Cone 34 g/dL 32-36 Redcell Distribution WDTH 14 % 10.5-15 Platelet Count 84 CUMM Low 150-450 61 Mean Platelet Volume 10.2 um3 7.4-10.4 Polysegmented Neutrophil 50 % 38-83 Band Neutrophil 1 % 0-8 Lymphocyte 35 % 25-47 Monocyte 13 % 0-13 Atypical Lymph 1 % 0-6 Absolute Neutrophil Count 2.6 Anisocytosis 1+ Macrocytosis 1+ Platelet Evaluation DECREASED Laboratory test 02/15/2010 [facility] TSH 5.02 MIU/ML 0.34- 5.60 finding [address] [place] [address] [phone] [facility] 11/19/2009 [facility] TSH 9.43 MIU/ML High 0.34-5.60 Panel [address] [place] [address] [phone] Comp Metabolic 11/19/2009 [facility] Sodium 138 mmol/L 135- 145 Panel [address] [place] [address] [phone] Potassium 4.4 mmol/L 3.5-5.0 Chloride 105 mmol/L 101-111 Co2 (Carbon Dioxide) 27.0 mmol/L 22-32 Anion Gap 6.0 mmol/L 2-11 62 Glucose 84 mg/dL 70-100 63 BUN 18 mg/dL 6-24 Creatinine 0.80 mg/dL 0.50-1.40 One Over Creatinine 1.20 BUN/Creatinine Ratio 22.5 High 8-20 Calcium 9.0 mg/dL 8.1-9.9 64 Total Protein 6.1 GM/DL Low 6.2-8.1 Albumin 3.3 GM/DL Low 3.6-5.4 Globulin 2.8 GM/DL 2-4 Albumin/Globulin Ratio 1.2 1-3 Bilirubin Total 0.5 mg/dL 0.4-1.5 65 Alkaline Phosphatase 41 U/L 30-110 Alt (SGPT) 19 U/L 14-54 Ast (Sgot) 19 U/L 12-42 eGFR Non- 86.8 > 60 eGFR 105.0 > 60 66 Lipid Profile 11/19/2009 [facility] Triglyceride 58 mg/dL 40- 200 (Trig/Chol/HDL) [address] [place] [address] [phone] Cholesterol 162 mg/dL Less Than 200 67 High Density Lipoprotein 40 mg/dL 40-60 68 Cholesterol/HDL Ratio 4.05 AVERAGE 1-4.44 Low Density Lipoprotein 110 mg/dL High Less Than 100 69 Manual Differential 11/19/2009 [facility] Polysegmented 40 % 38-[address] Neutrophil [place], [place] [id number] [phone] Band Neutrophil 1 % 0-8 Lymphocyte 44 % 25-47 Monocyte 12 % 0-13 Atypical Lymph 3 % 0-6 Absolute Neutrophil Count 1.9 RBC Morphology NORMAL Laboratory test 11/19/2009 [facility] Valproic Acid 114.1 High 50-100 [address] (Depakene) g/[place] [address] [phone] CBC With 11/19/2009 [facility] White Blood 4.7 CUMM Low 4.8- 10.8 Electronic Diff [address] [place] [address] [phone] Red Cell Count 3.66 CUMM Low 4.2-5.4 Hemoglobin 13.0 g/dL 12.0-16.0 Hematocrit 38 % 35-47 Mean Corpuscular Volume 103 um3 High 79-97 Mean Corpuscular Hemoglob 36 pg High 27-31 Mean Corpuscular HGB Cone 34 g/dL 32-36 Redcell Distribution WDTH 13 % 10.5-15 Platelet Count 93 CUMM Low 150-450 Mean Platelet Volume 9.6 um3 7.4-10.4 71 Urinalysis W/Microscopic 07/21/2009 [facility] Ua Color YELLOW Yellow [address] [place] [address] [phone] Appearance-Urine CLOUDY Clear Specific [place]-Ur 1.010 1.010-1.030 Esterase-Urine TRACE Abnormal Negative Nitrite NEGATIVE Negative Amzwqebvpurs-Gp-TCK NEGATIVE Negative Protein-Urine TRACE Abnormal Negative PH-Urine 8.0 5-9 Blood-Urine TRACE Abnormal Negative Ketones-Urine NEGATIVE Negative Bilirubin-Ur NEGATIVE Negative Glucose-Urine NEGATIVE Negative WBC-Urine 0-2 0-5 RBC-Urine 0-2 0-2 Mucus Urine SMALL None Epith Cells-Ur NONE None Bacteria-Urine TRACE None Ua Comments (SEE NOTE) 72 1 Because ethnic data is not always readily available, this report includes an eGFR for both -Americans and non- Americans. The National Kidney Disease Education Program (NKDEP) does not endorse the use of the MDRD equation for patients that are not between the ages of 18 and 70, are , have extremes of body size, muscle mass, or nutritional status, or are non- or non-. According to the National Kidney Foundation, irrespective of diagnosis, the stage of the disease is based on the level of kidney function: Stage Description GFR(mL/min/1.73 m(2)) 1 Kidney damage with normal or decreased GFR 90 2 Kidney damage with mild decrease in GFR 60-89 3 Moderate decrease in GFR 30-59 4 Severe decrease in GFR 15-29 5 Kidney failure <15 (or dialysis) 2 Because ethnic data is not always readily available, this report includes an eGFR for both -Americans and non- Americans. The National Kidney Disease Education Program (NKDEP) does not endorse the use of the MDRD equation for patients that are not between the ages of 18 and 70, are , have extremes of body size, muscle mass, or nutritional status, or are non- or non-. According to the National Kidney Foundation, irrespective of diagnosis, the stage of the disease is based on the level of kidney function: Stage Description GFR(mL/min/1.73 m(2)) 1 Kidney damage with normal or decreased GFR 90 2 Kidney damage with mild decrease in GFR 60-89 3 Moderate decrease in GFR 30-59 4 Severe decrease in GFR 15-29 5 Kidney failure <15 (or dialysis) 3 Test Performed by: [address] [id number] 4 ADDITIONAL INFORMATION This test has been modified from the unemployment benefits claims taker's instructions. Its performance characteristics were determined by [facility] in a manner consistent with CLIA requirements. This test has not been cleared or approved by the U.S. Food and Drug Administration. 5 ADDITIONAL INFORMATION This test has been modified from the unemployment benefits claims taker's instructions. Its performance characteristics were determined by [facility] in a manner consistent with CLIA requirements. This test has not been cleared or approved by the U.S. Food and Drug Administration. 6 ADDITIONAL INFORMATION This test has been modified from the unemployment benefits claims taker's instructions. Its performance characteristics were determined by [facility] in a manner consistent with CLIA requirements. This test has not been cleared or approved by the U.S. Food and Drug Administration. 7 IMPRESSION: No laboratory evidence of von Willebrand disease (VWD). COMMENTS: Normal or elevated factor VIII coagulant activity and/or von Willebrand factor (VWF) antigen and/or VWF activity [latex immunoassay] provide no evidence for von Willebrand disease (VWD). Note: VWF antigen and/or VWF latex immunoassay activity and/or factor VIII may be increased above baseline levels by acute or chronic inflammation, stress or adrenergic stimuli, or estrogen and oral contraceptive (OCP) therapy, liver disease or recent infusion of plasma, cryoprecipitate, desmopressin (DDAVP) or VWF concentrates and mask the diagnosis of mild von Willebrand disease (VWD). 8 Rey Yun M.D. Test Performed by: [facility] [place] [id number] ADDITIONAL INFORMATION This test has been modified from the unemployment benefits claims taker's instructions. Its performance characteristics were determined by [facility] in a manner consistent with CLIA requirements. This test has not been cleared or approved by the U.S. Food and Drug Administration. Test Performed by: [address] [address] 10 Because ethnic data is not always readily available, this report includes an eGFR for both -Americans and non- Americans. The National Kidney Disease Education Program (NKDEP) does not endorse the use of the MDRD equation for patients that are not between the ages of 18 and 70, are , have extremes of body size, muscle mass, or nutritional status, or are non- or non-. According to the National Kidney Foundation, irrespective of diagnosis, the stage of the disease is based on the level of kidney function: Stage Description GFR(mL/min/1.73 m(2)) 1 Kidney damage with normal or decreased GFR 90 2 Kidney damage with mild decrease in GFR 60-89 3 Moderate decrease in GFR 30-59 4 Severe decrease in GFR 15-29 5 Kidney failure <15 (or dialysis) 11 FASTING 12 FASTING 13 FASTING 14 FASTING 15 Because ethnic data is not always readily available, this report includes an eGFR for both -Americans and non- Americans. The National Kidney Disease Education Program (NKDEP) does not endorse the use of the MDRD equation for patients that are not between the ages of 18 and 70, are , have extremes of body size, muscle mass, or nutritional status, or are non- or non-. According to the National Kidney Foundation, irrespective of diagnosis, the stage of the disease is based on the level of kidney function: Stage Description GFR(mL/min/1.73 m(2)) 1 Kidney damage with normal or decreased GFR 90 2 Kidney damage with mild decrease in GFR 60-89 3 Moderate decrease in GFR 30-59 4 Severe decrease in GFR 15-29 5 Kidney failure <15 (or dialysis) 16 ADDITIONAL INFORMATION This test was developed using an analyte specific reagent. Its performance characteristics were determined by [facility] in a manner consistent with CLIA requirements. This test has not been cleared or approved by the U.S. Food and Drug Administration. Test Performed by: [facility] - [address] [address] 17 SEE RESULT BELOW Name: TJ RAMIRES : [address]: Carlo Hdez MD Acct: [id number] Unit: [id number] AGE: 41 Location: [facility] Re08/13/16 SEX: F Status: REG REF SPEC: [id number] SONY: 08/13/16-1142 [facility] DR: Carlo Hdez MD REQ: [id number] RECD: 08/13/16 STATUS: COMP _ SOURCE: WOUND SPDESC: ORDERED: Culture Stain COMMENTS: [id number] Specimen Description pustule between breast Procedure Result Reported Site Wound/Misc Gram Stain Final 08/14/16- 721 ML 1+ Neutrophils 1+ Epithelial Cells 3+ Gram Positive Bacilli 2+ Gram Positive Cocci 1+ Gram Negative Bacilli Wound/Misc Culture Final 08/15/16- 928 ML Organism 1 NORMAL EARL Quantity 2+ * ML - MAIN LAB ([facility]) . END OF REPORT * ML=Testing performed at Main Lab DEPARTMENT OF PATHOLOGY, [address] [place] [address] Ryan Campuzano M.D. Director [facility] # [id number] 18 SEE RESULT BELOW Name: TJ RAMIRES : [address]: Carlo Hdez MD Acct: [id number] Unit: [id number] AGE: 41 Location: [facility] Re08/13/16 SEX: F Status: REG REF SPEC: [id number] SONY: 08/13/16-1141 [facility] DR: Carlo Hdez MD REQ: [id number] RECD: 08/13/16 STATUS: COMP _ SOURCE: WOUND SPDESC: ORDERED: Culture Stain COMMENTS: [id number] Specimen Description red area right brast Procedure Result Reported Site Wound/Misc Gram Stain Final 08/14/16719 ML 3+ Epithelial Cells No Neutrophils Observed 4+ Gram Positive Cocci Wound/Misc Culture Final 08/16/16831 ML Organism 1 STAPHYLOCOCCUS LUGDENENSIS Quantity 2+ Beta Lactamase Negative Organism 2 NORMAL EARL Quantity 3+ 1. STAPHYLOCOCCUS LUGDENENSIS M.I.C. RX --------- ------ Penicillin 0.12 S Clindamycin <=0.25 S Erythromycin <=0.25 S Gentamicin <=0.5 S Linezolid 1 S Nitrofurantoin <=16 S Oxacillin 2 S * Quinupristin/Dalfopristin <=0.25 S Rifampin <=0.5 S Tetracycline <=1 S CONTINUED ON NEXT PAGE * ML=Testing performed at Main Lab DEPARTMENT OF PATHOLOGY, [address] [place] [address] Ryan Campuzano M.D. Director [facility] # [id number] Patient: TJ RAMIRES [id number] (Continued) Specimen: [id number] Collected: 08/13/16 Received: 08/13/16 (Continued) Procedure Result Reported Site Wound/Misc Culture Final (continued) 08/16/16831 1. STAPHYLOCOCCUS LUGDENENSIS (continued) M.I.C. RX --------- ------ Doxycycline - Deduced S * Minocycline - Deduced S Tigecycline <=0.12 S Vancomycin <=0.5 S Imipenem-Deduced S * Ampicillin/Sulbactam-Deduced S Cefazolin-Deduced S * These antibiotics are not available in the [facility] Formulary Contact the Microbiology Department for any additional antibiotic reporting. * ML - MAIN LAB ([facility]) . END OF REPORT * ML=Testing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
[2018-12-07 18:47] VITALS: BP 123/76
== END 2018-12-07 18:46 | disposition home or self-care (01) ==
LOC: ED 16:13
DX: R56.9 Unspecified convulsions (principal); Z88.8 Allergy status to other drugs, medicaments and biological substances; E03.9 Hypothyroidism, unspecified
CPT/HCPCS: 36415; 70450; 80164; 96372; 99283; A9270-GY; J1630